=== PATIENT | male | born 1960 | race Caucasian/White ===

== ENCOUNTER 2023-03-11 13:48 | Emergency (ER) | payer MEDICARE, MEDICAID, SELFPAY ==
[2023-03-11] VITALS (12 sets, daily range): BP systolic 129–164; BP diastolic 84–97; PULSE 67–104; RESP 12–22; TEMP 36.8; O2SAT 94–98; BMI 25.7
--- NOTE | 2023-03-11 14:00 | ECG_ITS ---
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
--- NOTE | 2023-03-11 14:02 | ED_ITS ---
HPI - General Adult General Chief complaint: Shortness of Breath/Dyspnea Stated complaint: SHORTNESS OF BREATH, CHEST PAIN, SPITTING UP PHLEM Time Seen by Provider: 03/11/23 13:51 History of Present Illness HPI narrative: patient is a 63-year-old male with a history of chronic obstructive pulmonary disease who presents to the emergency department for a one-week history of cough, shortness of breath and chest pain. He states the chest pain became more significant today prompting him to come to the Emergency Room. He states he has been short of breath and coughing with some sputum. He denies fevers, vomiting. No peripheral edema. He is a regular smoker, he does not currently have a physician. He has not been on any recent antibiotics or steroids. He states he had an Advair inhaler which he ran out of. No sick contacts in the home. He has had decreased oral intake as he lives alone and has not been feeling well. Related Data Previous Rx's Medication Instructions Recorded albuterol sulfate 90 mcg/actuation 2 inh inhalation Q6H PRN shortness 03/11/23 breath activated powder inhaler of breath or wheezing #1 ea azithromycin 250 mg tablet See Rx Instructions PO .COMPLEX #6 03/11/23 tabs prednisone 20 mg tablet 40 mg PO DAILY #10 tabs 03/11/23 Allergies Allergy/AdvReac Type Severity Reaction Status Date / Time No Known Drug Allergies Allergy Verified 03/11/23 13:58 Exam Constitutional Vital Signs, click to edit/add: Last Vital Signs Temp 98.3 F 03/11/23 14:00 Pulse 104 H 03/11/23 15:20 Resp 17 03/11/23 15:20 BP 162/91 H 03/11/23 15:00 Pulse Ox 95 03/11/23 15:20 O2 Del Method Room Air 03/11/23 14:37 Course Vital Signs Vital signs: Vital Signs Pulse Oximetry 97 03/11/23 13:54 Temperature 98.3 F 03/11/23 14:00 Pulse Rate 104 H 03/11/23 15:20 Respiratory Rate 17 03/11/23 15:20 Blood Pressure 162/91 H 03/11/23 15:00 Pulse Oximetry 95 03/11/23 15:20 Oxygen Delivery Method Room Air 03/11/23 14:37 Medical Decision Making MDM Narrative Medical decision making narrative: lab studies including d-dimer, troponin and BNP are within normal limits. Patient was treated with breathing treatment, Solu-Medrol and aspirin given as a precaution. EKG is unremarkable, chest x-ray shows no evidence of acute cardiopulmonary changes. patient is reevaluated by attending physician, patient's chest pain is worse with deep breathing and movement, it has been present for over a week with normal labs and no EKG changes. Patient will be treated with antibiotics, steroids, albuterol inhaler. Follow-up with PCP and return to the Emergency Room if symptoms change or worsen. Medical Records Medical records reviewed: Yes I reviewed the patient's medical records Lab Data Lab results reviewed: Yes I reviewed the patient's lab results Labs: Lab Results 03/11/23 Range/Units 14:09 WBC 9.0 (4.0-11.0) 10^3/uL RBC 4.67 L (4.70-6.10) 10^6/uL Hgb 13.8 L (14.0-18.0) g/dL Hct 43.3 (42.0-54.0) % MCV 92.7 (80.0-94.0) fL MCH 29.6 (25.9-34.0) pg MCHC 31.9 (29.9-35.2) g/dL RDW 13.3 (11.0-15.0) % Plt Count 248 (150-450) 10^3/uL MPV 9.8 (9.5-13.5) fL Neut % (Auto) 65.7 (43.0-75.0) % Lymph % (Auto) 20.9 (20.5-60.0) % [place] % (Auto) 9.9 (1.7-12.0) % Eos % (Auto) 1.6 (0.9-7.0) % Baso % (Auto) 0.8 (0.2-2.0) % Neut # (Auto) 5.9 (1.4-6.5) 10^3/uL Lymph # (Auto) 1.9 (1.2-3.8) 10^3/uL [place] # (Auto) 0.9 H (0.3-0.8) 10^3/uL Eos # (Auto) 0.1 (0.0-0.7) 10^3/uL Baso # (Auto) 0.1 (0.0-0.1) 10^3/uL Abs Immat Gran (auto) 0.10 H (0.00-0.03) 10^3/uL Imm/Tot Granulo (auto) 1.1 H (0.0-0.5) % PT 9.7 (9.0-11.6) sec INR <0.93 APTT 23.9 (22.3-36.2) sec D-Dimer 0.32 (<=0.59) mg/L FEU VBG pH 7.426 (7.330-7.430) VBG pCO2 47.1 (40.0-52.0) mmHg Sodium 140 (136-145) mmol/L Potassium 4.2 (3.5-5.1) mmol/L Chloride 104 (98-107) mmol/L Carbon Dioxide 31.5 (21.0-32.0) mmol/L Anion Gap 8.7 BUN 16.0 (7.0-18.0) mg/dL Creatinine 0.94 (0.70-1.30) mg/dL Est GFR ( Amer) >60 (>=60) Est GFR (Non-Af Amer) >60 (>=60) BUN/Creatinine Ratio 17.0 Glucose 92 (74-106) mg/dL Calcium 9.2 (8.5-10.1) mg/dL Total Bilirubin 0.3 (0.2-1.0) mg/dL AST 15 (15-37) U/L ALT 20 (16-63) U/L Alkaline Phosphatase 101 (46-116) U/L Troponin I High Sens 5.2 (4.0-76.1) pg/mL NT-Pro-B Natriuret Pep 40.0 (<=900.0) pg/mL Total Protein 7.1 (6.4-8.2) g/dL Albumin 3.7 (3.4-5.0) g/dL Globulin 3.4 g/dL Albumin/Globulin Ratio 1.1 Imaging Data Chest x-ray: Attestation: I have reviewed the pertinent imaging results. Radiologist's impression: Procedure: XR chest 1V ONE-VIEW CHEST RADIOGRAPH, 03/11/2023 2:40 PM EDT COMPARISON: None CLINICAL HISTORY: Chest pain FINDINGS: Minimal atelectasis in the left lung base. Lungs otherwise clear. No pulmonary edema, pneumothorax, or pleural effusion. Normal heart size. No acute osseous abnormality. IMPRESSION: Minimal atelectasis in the left lung base. Electronically authenticated by: Mariam GIFFORD Date: 03/11/2023 15:11 ECG Data Attestation: I personally reviewed and interpreted this ECG as follows: (normal sinus rhythm at a rate of seventy-four, no acute ST elevation or ectopy. EKG reviewed by attending physician) Discharge Plan Discharge Chief Complaint: Shortness of Breath/Dyspnea Clinical Impression: COPD exacerbation Patient Disposition: Home, Self-Care Time of Disposition Decision: 15:30 Mode of Transportation: Private Vehicle Prescriptions / Home Meds: New albuterol sulfate 90 mcg/actuation aerosol powdr breath activated 2 inh inhalation Q6H PRN (Reason: shortness of breath or wheezing) Qty: 1 0RF prednisone 20 mg tablet 40 mg PO DAILY Qty: 10 0RF azithromycin 250 mg tablet See Rx Instructions .ROUTE .COMPLEX Qty: 6 0RF Rx Instructions: For 250 mg dose pack: take 500 mg today (day 1), then 250 mg for 4 days (days 2-5) Instructions: COPD (Chronic Obstructive Pulmonary Disease) (ED) Stand Alone Forms: Portal Instructions Referrals: REGINALDO AGOSTO [Nurse Practitioner] - 1 week Discharge Date/Time: 03/11/23 15:39
[2023-03-11 14:15] LABS: PCO2 VBG 47.1 mmHg (40.0-52.0); pH VBG 7.426 (7.330-7.430)
[2023-03-11 14:17] LABS: Basophils Absolute Auto 0.1 10^3/uL (0.0-0.1); Basophils Percent Auto 0.8 % (0.2-2.0); Eosinophils Absolute Auto 0.1 10^3/uL (0.0-0.7); Eosinophils Percent Auto 1.6 % (0.9-7.0); Hematocrit 43.3 % (42.0-54.0); Hemoglobin 13.8 g/dL (14.0-18.0); Immature Granulocytes Pct Auto 1.1 % (0.0-0.5); Lymphocytes Absolute Auto 1.9 10^3/uL (1.2-3.8); Lymphocytes Percent Auto 20.9 % (20.5-60.0); Mean Corpuscular HGB Conc 31.9 g/dL (29.9-35.2); Mean Corpuscular Hemoglobin 29.6 pg (25.9-34.0); Mean Corpuscular Volume 92.7 fL (80.0-94.0); Mean Platelet Volume 9.8 fL (9.5-13.5); Monocytes Absolute Auto 0.9 10^3/uL (0.3-0.8); Monocytes Percent Auto 9.9 % (1.7-12.0); Neutrophils Absolute Auto 5.9 10^3/uL (1.4-6.5); Neutrophils Percent Auto 65.7 % (43.0-75.0); Platelet Count 248 10^3/uL (150-450); Red Blood Count 4.67 10^6/uL (4.70-6.10); Red Cell Distribution Width 13.3 % (11.0-15.0)
[2023-03-11] MEDS: ASPIRIN 81 MG TAB.CHEW 162 MG PO (14:18)
[2023-03-11] MEDS: 0.9 % SODIUM CHLORIDE 1,000 ML 1000 ML IV (14:18)
[2023-03-11] MEDS: METHYLPREDNISOLONE SOD SUCC PF 125 MG/2 ML VIAL IVP (14:19)
[2023-03-11] MEDS: ALBUTEROL SULFATE 2.5 MG/3 ML VIAL NEB IH (14:33)
[2023-03-11 14:38] LABS: Alanine Aminotransferase 20 U/L (16-63); Albumin Globulin Ratio 1.1; Albumin Level 3.7 g/dL (3.4-5.0); Alkaline Phosphatase 101 U/L (46-116); Anion Gap 8.7; Aspartate Amino Transferase 15 U/L (15-37); Bilirubin Total 0.3 mg/dL (0.2-1.0); Calcium 9.2 mg/dL (8.5-10.1); Carbon Dioxide 31.5 mmol/L (21.0-32.0); Chloride 104 mmol/L (98-107); Estimated GFR (African America >60 (>=60); Estimated GFR (Non-African Ame >60 (>=60); Globulin 3.4 g/dL; Glucose 92 mg/dL (74-106); Potassium 4.2 mmol/L (3.5-5.1); Sodium 140 mmol/L (136-145); Total Protein 7.1 g/dL (6.4-8.2); Troponin I High Sensitivity 5.2 pg/mL (4.0-76.1)
[2023-03-11 14:40] LABS: D Dimer 0.32 mg/L FEU (<=0.59); Partial Thromboplastin Time 23.9 sec (22.3-36.2); Prothrombin Time 9.7 sec (9.0-11.6)
[2023-03-11 14:42] LABS: INR <0.93
--- NOTE | 2023-03-11 14:43 | XR_ITS ---
The [address] [address] Patient Name: KRISH MCDONOUGH MRN: [id number] date: 1960 Sex: M Assigned Patient Location: ER Current Patient Location: ER Accession/Order Number: [id number] Exam Date: 03/11/2023 14:40 Report Date: 03/11/2023 15:11 At the request of: ERICA HINDS Procedure: XR chest 1V ONE-VIEW CHEST RADIOGRAPH, 03/11/2023 2:40 PM EDT COMPARISON: None CLINICAL HISTORY: Chest pain FINDINGS: Minimal atelectasis in the left lung base. Lungs otherwise clear. No pulmonary edema, pneumothorax, or pleural effusion. Normal heart size. No acute osseous abnormality. XR/XR chest 1V IMPRESSION: Minimal atelectasis in the left lung base. Electronically authenticated by: Mariam GIFFORD Date: 03/11/2023 15:11
== END 2023-03-11 15:39 | disposition home or self-care (01) ==
PROVIDERS: Physician Assistant; Emergency Provider Emergency Medicine
DX: J44.1 Chronic obstructive pulmonary disease with (acute) exacerbation (principal); F17.210 Nicotine dependence, cigarettes, uncomplicated
CPT/HCPCS: 36415; 36592; 71045; 80053; 82800; 83880; 84484; 85025; 85378; 85610; 85730; 93005; 94640; 96374; 99285; 99406; J2930

== ENCOUNTER 2023-08-02 08:19 | Emergency (ER) | payer MEDICARE, SELFPAY ==
[2023-08-02] VITALS (15 sets, daily range): BP systolic 154–174; BP diastolic 90–101; PULSE 57–76; RESP 16–27; TEMP 36.5; O2SAT 89–98; BMI 24.2
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
--- NOTE | 2023-08-02 08:40 | ECG_ITS ---
The [facility] Test Date: 2023-08-02 Pat Name: KRISH CUEVAS Department: Room: - Gender: Male [employer] Clerk: : 1960 Requested By: Order Number: [id number] Reading MD: LILLIAN GARCIA Measurements Intervals [place] Rate: 64 P: 41 [place]: 196 QRS: 52 QRSD: 78 T: 46 QT: 400 QTc: 410 Interpretive Statements 1100 Sinus rhythm 9110 normal ECG Compared to ECG 06/08/2018 12:57:18 ST (T wave) deviation no longer present Electronically Signed On 08-02-2023 22:21:01 EDT by LILLIAN GARCIA
--- NOTE | 2023-08-02 08:40 | XR_ITS ---
The [address] [address] Patient Name: KRISH CUEVAS MRN: [id number] date: 1960 Sex: M Assigned Patient Location: ER Current Patient Location: ER Accession/Order Number: [id number] Exam Date: 08/02/2023 09:23 Report Date: 08/02/2023 09:41 At the request of: NIKOLE WHEATLEY Procedure: XR chest 2V EXAM: XR chest 2V HISTORY: cp COMPARISON: Chest study dated 03/11/2023 TECHNIQUE: PA and lateral views of the chest were obtained. FINDINGS: Heart and mediastinal contours are unremarkable in appearance. Mild COPD. No acute infiltrate or consolidations are seen. No obvious pneumothorax. Slight ill-defined increased density overlying the left upper lung field laterally as well as lower lung castellanos compatible with atelectatic and/or fibrotic changes similar to the prior study. [id number] degenerative changes in the dorsal spine with mild convexity to the right. XR/XR chest 2V IMPRESSION: Mild COPD. Findings compatible with mild atelectatic and/or fibrotic changes as described. No obvious focal infiltrate or consolidation. Electronically authenticated by: OLGA NERI Date: 08/02/2023 09:41
[2023-08-02] MEDS: ASPIRIN 81 MG TAB.CHEW 162 MG PO (09:01)
[2023-08-02 09:06] LABS: Basophils Absolute Auto 0.1 10^3/uL (0.0-0.1); Basophils Percent Auto 0.9 % (0.2-2.0); Eosinophils Absolute Auto 0.2 10^3/uL (0.0-0.7); Hemoglobin 13.6 g/dL (14.0-18.0); Immature Granulocytes Abs Auto 0.12 10^3/uL (0.00-0.03); Immature Granulocytes Pct Auto 1.4 % (0.0-0.5); Lymphocytes Absolute Auto 2.1 10^3/uL (1.2-3.8); Lymphocytes Percent Auto 23.5 % (20.5-60.0); Mean Corpuscular HGB Conc 31.6 g/dL (29.9-35.2); Mean Corpuscular Hemoglobin 29.6 pg (25.9-34.0); Mean Corpuscular Volume 93.5 fL (80.0-94.0); Mean Platelet Volume 9.9 fL (9.5-13.5); Monocytes Absolute Auto 0.9 10^3/uL (0.3-0.8); Monocytes Percent Auto 10.6 % (1.7-12.0); Neutrophils Absolute Auto 5.4 10^3/uL (1.4-6.5); Neutrophils Percent Auto 61.6 % (43.0-75.0); Platelet Count 238 10^3/uL (150-450); Red Cell Distribution Width 13.6 % (11.0-15.0); White Blood Count 8.7 10^3/uL (4.0-11.0)
--- NOTE | 2023-08-02 09:15 | ED.GENADUL1 ---
HPI - General Adult General Chief complaint: Chest Pain Stated complaint: CHEST PAIN Time Seen by Provider: 08/02/23 08:40 Source: patient Mode of arrival: walk-in Limitations: no limitations History of Present Illness HPI narrative: Patient is a 63-year-old female who is presenting to the ER today with chief complaint of 4 days of chest wall pain, chest pressure, also productive yellow/greenish/clear productive sputum for the past 3 to 4 days. Patient is a smoker, patient states he is trying to quit. Patient has a history of emphysema and COPD. Patient states he had a stress test and echocardiogram 10 to 15 years ago. Patient has no recent traveling. Patient was seeing Dr. 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 Patient has no abdominal pain, nausea or vomiting. Patient has no recent heavy lifting, twisting or turning. Patient has sore throat, sinus congestion, sinus headache, no other acute complaints. Patient's headache was not the worse headache of her life, not sudden onset, not thunderclap in nature. All systems are negative except as noted/marked. All systems reviewed and otherwise negative. Nurses note and vital signs reviewed and patient is not hypoxic. General: The patient appears well and in no apparent distress. Patient is resting comfortably on cart. Patient is not toxic, lethargic, or listless Skin: Warm, dry, no pallor noted. There is no rash noted. No petechiae, purpura. Head: Normocephalic, atraumatic, mild reproducible tenderness to palpation to bilateral frontal and maxillary sinuses. Eye: Normal conjunctiva, no drainage, EOMI. PERRL Ears, Nose, Mouth, and Throat: oral mucosa is moist. Patient has clear/yellowish sinus drainage to the posterior pharynx along cobblestoning, no unilateral swelling, no posterior pharyngeal petechiae, exudate, or acute abnormalities. Nares patent. Mouth without vesicles. Cardiovascular: Regular Rate and Rhythm, no murmur, gallop, rub; patient has reproducible tenderness to palpation to the bilateral anterior chest wall, no rash, barrel chest noted. Respiratory: Patient is in no distress, no accessory muscle use, lungs are clear to auscultation, no wheezing, rales or rhonchi Back: non-tender, no CVA tenderness bilaterally to percussion. No CT LS midline pain GI: no tenderness to palpation, no masses appreciated. No rebound, guarding, or rigidity noted. No distention Musculoskeletal: Patient has full range of motion of all of the extremities, no motor, sensory, or focal neurological deficits Neurological: A&O x4, normal speech Psychiatric: Cooperative Related Data Home Medications Medication Instructions Recorded Confirmed albuterol sulfate 90 mcg/actuation 1 puff inhalation Q6H PRN 08/02/23 08/02/23 aerosol inhaler shortness of breath or wheezing budesonide-formoterol HFA 80 1 inh inhalation BID 08/02/23 08/02/23 mcg-4.5 mcg/actuation aerosol inhaler (Symbicort) Previous Rx's Medication Instructions Recorded albuterol sulfate 90 mcg/actuation 2 inh inhalation Q6H PRN shortness 03/11/23 breath activated powder inhaler of breath or wheezing #1 ea prednisone 20 mg tablet 40 mg (2 x 20 mg) PO DAILY #10 tabs 03/11/23 benzonatate 100 mg capsule 200 mg (2 x 100 mg) PO TID PRN 08/02/23 cough #20 caps doxycycline hyclate 100 mg tablet 100 mg PO BID 10 days #20 tabs 08/02/23 ondansetron 4 mg disintegrating 4 mg PO Q4H PRN nausea and 08/02/23 tablet vomiting 3 days #6 tabs prednisone 50 mg tablet 50 mg PO DAILY 5 days #5 tabs 08/02/23 Allergies Allergy/AdvReac Type Severity Reaction Status Date / Time No Known Drug Allergies Allergy Verified 03/11/23 13:58 Exam Constitutional Vital Signs, click to edit/add: Last Vital Signs Temp 97.7 F 08/02/23 08:24 Pulse 76 08/02/23 10:09 Resp 18 08/02/23 09:57 BP 168/90 H 08/02/23 10:09 Pulse Ox 98 08/02/23 10:09 O2 Del Method Room Air 08/02/23 08:24 Course Vital Signs Vital signs: Vital Signs Temperature 97.7 F 08/02/23 08:24 Pulse Rate 65 08/02/23 08:24 Respiratory Rate 18 08/02/23 08:24 Blood Pressure 174/100 H 08/02/23 08:24 Pulse Oximetry 97 08/02/23 08:24 Oxygen Delivery Method Room Air 08/02/23 08:24 Temperature 97.7 F 08/02/23 08:24 Pulse Rate 76 08/02/23 10:09 Respiratory Rate 18 08/02/23 09:57 Blood Pressure 168/90 H 08/02/23 10:09 Pulse Oximetry 98 08/02/23 10:09 Oxygen Delivery Method Room Air 08/02/23 08:24 Medical Decision Making MDM Narrative Medical decision making narrative: Patient EKG, chest x-ray, lab work shows no acute findings. Patient will be sent home with prednisone, doxycycline, Tessalon perles as well. Patient was educated on using [id number]-[id number] medications as well, this was written on his discharge papers. Patient will start taking baby aspirin daily. Patient was given signs and symptoms of water return back to the ER, otherwise patient has been referred to cardiology as well. Patient understands this, no questions at discharge. Lab Data Labs: Lab Results 08/02/23 Range/Units 08:45 WBC 8.7 (4.0-11.0) 10^3/uL RBC 4.60 L (4.70-6.10) 10^6/uL Hgb 13.6 L (14.0-18.0) g/dL Hct 43.0 (42.0-54.0) % MCV 93.5 (80.0-94.0) fL MCH 29.6 (25.9-34.0) pg MCHC 31.6 (29.9-35.2) g/dL RDW 13.6 (11.0-15.0) % Plt Count 238 (150-450) 10^3/uL MPV 9.9 (9.5-13.5) fL Neut % (Auto) 61.6 (43.0-75.0) % Lymph % (Auto) 23.5 (20.5-60.0) % Letcher % (Auto) 10.6 (1.7-12.0) % Eos % (Auto) 2.0 (0.9-7.0) % Baso % (Auto) 0.9 (0.2-2.0) % Neut # (Auto) 5.4 (1.4-6.5) 10^3/uL Lymph # (Auto) 2.1 (1.2-3.8) 10^3/uL Letcher # (Auto) 0.9 H (0.3-0.8) 10^3/uL Eos # (Auto) 0.2 (0.0-0.7) 10^3/uL Baso # (Auto) 0.1 (0.0-0.1) 10^3/uL Abs Immat Gran (auto) 0.12 H (0.00-0.03) 10^3/uL Imm/Tot Granulo (auto) 1.4 H (0.0-0.5) % D-Dimer 0.52 (<=0.59) mg/L FEU Sodium 141 (136-145) mmol/L Potassium 4.1 (3.5-5.1) mmol/L Chloride 105 (98-107) mmol/L Carbon Dioxide 27.6 (21.0-32.0) mmol/L Anion Gap 12.5 BUN 13.0 (7.0-18.0) mg/dL Creatinine 0.87 (0.70-1.30) mg/dL Est GFR ( Amer) >60 (>=60) Est GFR (Non-Af Amer) >60 (>=60) BUN/Creatinine Ratio 14.9 Glucose 88 (74-106) mg/dL Calcium 8.7 (8.5-10.1) mg/dL Total Bilirubin 0.3 (0.2-1.0) mg/dL AST 24 (15-37) U/L ALT 31 (16-63) U/L Alkaline Phosphatase 99 (46-116) U/L Troponin I High Sens <4.0 L (4.0-76.1) pg/mL NT-Pro-B Natriuret Pep 80.0 (<=900.0) pg/mL Total Protein 7.5 (6.4-8.2) g/dL Albumin 3.8 (3.4-5.0) g/dL Globulin 3.7 g/dL Albumin/Globulin Ratio 1.0 Lipase 34.0 (16.0-77.0) U/L ECG Data Attestation: I personally reviewed and interpreted this ECG as follows: (EKG interpretation. Normal sinus rhythm at 64 beats a minute. Normal axis deviation. No acute ST elevation, no acute ectopy. QTc of 410) Discharge Plan Discharge Stand Alone Forms: Portal Instructions Chief Complaint: Chest Pain Clinical Impression: Chest wall pain, Atypical chest pain, Sinusitis, Tobacco abuse, COPD exacerbation Patient Disposition: Home, Self-Care Time of Disposition Decision: 10:43 Condition: Fair Prescriptions / Home Meds: New benzonatate 100 mg capsule 200 mg PO TID PRN (Reason: cough) Qty: 20 0RF prednisone 50 mg tablet 50 mg PO DAILY 5 Days Qty: 5 0RF ondansetron 4 mg tablet,disintegrating 4 mg PO Q4H PRN (Reason: nausea and vomiting) 3 Days Qty: 6 0RF doxycycline hyclate 100 mg tablet 100 mg PO BID 10 Days Qty: 20 0RF No Action albuterol sulfate 90 mcg/actuation aerosol powdr breath activated 2 inh inhalation Q6H PRN (Reason: shortness of breath or wheezing) Qty: 1 0RF prednisone 20 mg tablet 40 mg PO DAILY Qty: 10 0RF budesonide-formoterol [Symbicort] 80-4.5 mcg/actuation HFA aerosol inhaler 1 inh inhalation BID albuterol sulfate 90 mcg/actuation HFA aerosol inhaler 1 puff INHALATION Q6H PRN (Reason: shortness of breath or wheezing) Instructions: Chest Pain (ED), How to Stop Smoking (ED), Sinusitis (ED), COPD (Chronic Obstructive Pulmonary Disease) (ED), Chest Wall Pain (ED) Additional Instructions: Increase fluids at home, Gatorade, Powerade, or water. Alternate using DayQuil, NyQuil, and Flonase. Add Mucinex as well as needed. Alternate Tylenol and Motrin every 4 hours to help with fever control, body aches or joint pain. Use [id number] vitamin C, vitamin D3, and zinc to help fight infection and help with her immune system. I have referred you to cardiology as well, if you continue to have chest pain, he will need to follow-up with them with outpatient stress test and echocardiogram. As discussed at bedside, if you are having heavy, heavy chest pressure, significant shortness of breath, or any other acute concerns, return back to the ER for further evaluation. Start taking a baby aspirin daily until evaluation from Cardiology:. Referrals: Sabino Sam MD [Physician] - 1 week PhysicianLashon-MD Kaley [Primary Care Provider] - 1 week Discharge Date/Time: 08/02/23 11:04
[2023-08-02 09:19] LABS: D Dimer 0.52 mg/L FEU (<=0.59)
[2023-08-02 09:21] LABS: Alanine Aminotransferase 31 U/L (16-63); Albumin Level 3.8 g/dL (3.4-5.0); Alkaline Phosphatase 99 U/L (46-116); Anion Gap 12.5; Aspartate Amino Transferase 24 U/L (15-37); BUN Creatinine Ratio 14.9; Bilirubin Total 0.3 mg/dL (0.2-1.0); Calcium 8.7 mg/dL (8.5-10.1); Carbon Dioxide 27.6 mmol/L (21.0-32.0); Chloride 105 mmol/L (98-107); Estimated GFR (African America >60 (>=60); Estimated GFR (Non-African Ame >60 (>=60); Globulin 3.7 g/dL; Glucose 88 mg/dL (74-106); Potassium 4.1 mmol/L (3.5-5.1); Sodium 141 mmol/L (136-145); Total Protein 7.5 g/dL (6.4-8.2)
[2023-08-02 09:29] LABS: Troponin I High Sensitivity <4.0 pg/mL (4.0-76.1)
== END 2023-08-02 11:04 | disposition home or self-care (01) ==
PROVIDERS: Emergency Provider Emergency Medicine
DX: R07.89 Other chest pain (principal); J32.9 Chronic sinusitis, unspecified; J43.9 Emphysema, unspecified; F17.210 Nicotine dependence, cigarettes, uncomplicated; Z79.899 Other long term (current) drug therapy
CPT/HCPCS: 36415; 71046; 80053; 83690; 83880; 84484; 85025; 85378; 93005; 99285

== ENCOUNTER 2024-01-25 16:42 | Emergency (ER) | payer MEDICARE, MEDICAID, SELFPAY ==
--- OUTSIDE RECORDS SUMMARY | 2024-01-25 16:54 | XMS_ITS | CCD ---
Author Organization [facility] Care Team Providers Care Ironer Name Role Phone PHYSICIAN, DEFAULT Unavailable Unavailable PHYSICIAN, DEFAULT Unavailable Unavailable CRISTY PLEITEZ Unavailable Unavailable REMI GARJEDA Consulting Unavailable KITA MARTI Admitting Unavail able CONCHITA TAVARES Attending Unavailable Unavailable Primary Care Provider UnavailREGINALDO Lyons Referring Unavailable VERONICA FREIRE Admitting Unavailable VERONICA FREIRE Consulting Unavailable VERONICA FREIRE Attending Unavailable [facility] LARA Primary Care Unavailable DELFINO CLAROS Consulting Unavailable [facility] Primary Care Unavailable RGEINALDO AGOSTO Admitting Unavailable REGINALDO AGOSTO Attending Unavailable [...] Start: 02-20-2019 End: 02-20-2019 lidocaine-EPINEPHr ine 1 percent-[id number] injection 20 mL Problems Active Problems Problem [...] 09-13-2022 Episodic Other aftercare (2 sources) Other watcher automat long goods (current) drug therapy; Translations: [Other watcher automat long goods (current) drug therapy] Onset: 06-16-2022 Episodic Other [...] 09-13-2022 BASO # 0.1 103/ul Normal 0.0-0.1 [facility] Comment on above: Performed By: #### C BC #### [facility] [address] [address] [address] Rachel Pulido Basophils/100 WBC (Bld) 0.9 % Normal 0.2-2.0 [facility] Comment on above: Performed By: #### C BC #### [facility] [address] [address] [address] Rachel Pulido EO # 0.2 103/ul Normal 0.0-0.7 [facility] Comment on above: Performed By: #### C BC #### [facility] [address] [place] [address] Dr. Rachel Pulido Eosinophils/100 WBC (Bld) 1.5 % Normal 0.9-7.0 [facility] Comment on above: Performed By: #### C BC #### [facility] [address] [place] [address] Dr. Racehl Pulido Erythrocyte distribution width (RBC) [Ratio] 13.4 % Normal 11.0-15.0 [facility] Comment on above: Performed By: #### C BC #### [facility] [address] [place] [address] Dr. Rachel Pulido Hematocrit (Bld) [Volume fraction] 45.4 % Normal 42.0-54.0 [facility] Comment on above: Performed By: #### C BC #### [facility] [address] [place] [address] Dr. Rachel Pulido Hemoglobin (Bld) [Mass/Vol] 14.8 g/dL Normal 14.0-18.0 [facility] Comment on above: Performed By: #### C BC #### [facility] [address] [place] [address] Dr. Rachel Pulido IG # 0.07 10e3/ul Critically high 0.00-0.03 [facility] Comment on above: Performed By: #### C BC #### [facility] [address] [place] [address] Dr. Rachel Pulido IG % 0.7 % Critically high 0.0-0.5 [facility] Comment on above: Performed By: #### C BC #### [facility] [address] [place] [address] Dr. Rachel Pulido LYMPH # 1.9 103/ul Normal 1.2-3.8 [facility] Comment on above: Performed By: #### C BC #### [facility] [address] [place] [address] Dr. Rachel Pulido Lymphocytes/100 WBC (Bld) 18.7 % Critically low 20.5-60.0 [facility] Comment on above: Performed By: #### C BC #### [facility] [address] [place] [address] Dr. Rachel Pulido MANUAL DIFF REQ NO Normal [facility] Comment on above: Performed By: #### C BC #### [facility] [address] [place] [address] Dr. Rachel Pulido MCH (RBC) [Entitic mass] 30.2 pg Normal 25.9-34.0 [facility] Comment on above: Performed By: #### C BC #### [facility] [address] [place] [address] Dr. Rachel Pulido MCHC (RBC) [Mass/Vol] 32.6 g/dL Normal 29.9-35.2 [facility] Comment on above: Performed By: #### C BC #### [facility] [address] [place] [address] Dr. Rachel Pulido MCV (RBC) [Entitic vol] 92.7 fL Normal 80.0-94.0 [facility] Comment on above: Performed By: #### C BC #### [facility] [address] [place] [address] Dr. Rachel Pulido MONO # 1.0 103/ul Critically high 0.3-0.8 [facility] Comment on above: Performed By: #### C BC #### [facility] [address] [place] [address] Dr. Rachel Pulido Monocytes/100 WBC (Bld) 9.6 % Normal 1.7-12.0 [facility] Comment on above: Performed By: #### C BC #### [facility] [address] [place] [address] Dr. Rachel Pulido NEUT # 7.1 103/ul Critically high 1.4-6.5 [facility] Comment on above: Performed By: #### C BC #### [facility] [address] [place] [address] Dr. Rachel Pulido Neutrophils/100 WBC (Bld) 68.6 % Normal 43.0-75.0 [facility] Comment on above: Performed By: #### C BC #### [facility] [address] [address] [address] Rachel Pulido Platelet mean volume (Bld) [Entitic vol] 9.8 fL Normal 9.5-13.5 [facility] Comment on above: Performed By: #### C BC #### [facility] [address] [address] [address] Rachel Pulido PLT 263 103/ul Normal 150-450 [facility] Comment on above: Performed By: #### C BC #### [facility] [address] [address] [address] Rachel Pulido RBC 4.90 106/ul Normal 4.70-6.10 [facility] Comment on above: Performed By: #### C BC #### [facility] [address] [place] [address] Dr. Rachel Pulido WBC 10.4 103/ul Normal 4.0-11.0 [facility] Comment on above: Performed By: #### C BC #### [facility] [address] [place] [address] ABD/PELVIS WO CONon [...] ninth lateral rib. Electronically authenticated by: DELFINO CAMULISES Date: 2022-09-13 11:34 Normal [facility] ER URINE PROFILEon 3 Bilirubin Ql (U) Negative Normal NEGATIVE [facility] Comment on above: Performed By: #### E RUR #### [facility] [address] [place] [address] Dr. Rachel Pulido Clarity (U) CLEAR Normal CLEAR [facility] Comment on above: Performed By: #### E RUR #### [facility] [address] [place] [address] Dr. Rachel Pulido Color (U) LT. YELLOW Normal YELLOW [facility] Comment on above: Performed By: #### E RUR #### [facility] [address] [place] [address] Dr. Rachel PICKARD A micrscopic examination will be performed if indicated. Normal [facility] Comment on above: Performed By: #### E RUR #### [facility] [address] [place] [address] Dr. Rachel Pulido Glucose Ql (U) Negative Normal NEGATIVE [facility] Comment on above: Performed By: #### E RUR #### [facility] [address] [address] [address] Rachel Pulido Hemoglobin Ql (U) Negative Normal NEGATIVE [facility] Comment on above: Performed By: #### E RUR #### [facility] [address] [address] [address] Rachel Pulido Ketones Ql (U) Negative Normal NEGATIVE [facility] Comment on above: Performed By: #### E RUR #### [facility] [address] [place] [address] Dr. Rachel Pulido LEUKOCYTES Negative Normal NEGATIVE [facility] Comment on above: Performed By: #### E RUR #### [facility] [address] [place] [address] Dr. Rachel Pulido Nitrite Ql (U) Negative Normal NEGATIVE [facility] Comment on above: Performed By: #### E RUR #### [facility] [address] [place] [address] Dr. Rachel Pulido pH (U) 5.5 [pH] Normal 5-9 [facility] Comment on above: Performed By: #### E RUR #### [facility] [address] [place] [address] Dr. Rachel Pulido SPEC GRAVITY >=1.030 Abnormal 1.005-<=1.025 [facility] Comment on above: Performed By: #### E RUR #### [facility] [address] [place] [address] Dr. Rachel Pulido UA PROTEIN Negative Normal NEGATIVE/ TRACE [facility] Comment on above: Performed By: #### E RUR #### [facility] [address] [place] [address] Dr. Rachel Pulido UR MICRO IND NOT INDICATED Normal [facility] Comment on above: Performed By: #### E RUR #### [facility] [address] [place] [address] Dr. Rachel Pulido Urobilinogen Qn (U) 0.2 {Angella'U}/dL Normal 0.2 - 1. 0 [facility] Comment on above: Performed By: #### E RUR #### [facility] [address] [place] [address] Dr. Rachel Pulido PROF 14(COMP METB)on 09-13- 023 Albumin [Mass/Vol] 3.9 g/dL Normal 3.4-5.0 [facility] Comment on above: Performed By: #### C MP #### [facility] [address] [place] [address] Dr. Rachel Pulido Albumin/Globulin [Mass ratio] 1.1 {ratio} Normal [facility] Comment on above: Performed By: #### C MP #### [facility] [address] [place] [address] Dr. Rachel Pulido ALP [Catalytic activity/Vol] 110 U/L Normal 46-116 [facility] Comment on above: Performed By: #### C MP #### [facility] [address] [place] [address] Dr. Rachel Pulido ALT [Catalytic activity/Vol] 20 U/L Normal 16-63 [facility] Comment on above: Performed By: #### C MP #### [facility] [address] [place] [address] Dr. Rachel Pulido Anion gap [Moles/Vol] 8.9 mmol/L Normal [facility] Comment on above: Performed By: #### C MP #### [facility] [address] [place] [address] Dr. Rachel Pulido AST [Catalytic activity/Vol] 16 U/L Normal 15-37 [facility] Comment on above: Performed By: #### C MP #### [facility] [address] [place] [address] Dr. Rachel Pulido Bilirubin [Mass/Vol] 0.2 mg/dL Normal 0.2-1.0 [facility] Comment on above: Performed By: #### C MP #### [facility] [address] [place] [address] Dr. Rachel Pulido Calcium [Mass/Vol] 9.3 mg/dL Normal 8.5-10.1 [facility] Comment on above: Performed By: #### C MP #### [facility] [address] [place] [address] Dr. Rachel Pulido Chloride [Moles/Vol] 106 mmol/L Normal 98-107 [facility] Comment on above: Performed By: #### C MP #### [facility] [address] [place] [address] Dr. Rachel Pulido CO2 [Moles/Vol] 32.0 mmol/L Normal 21.0-32.0 [facility] Comment on above: Performed By: #### C MP #### [facility] [address] [place] [address] Dr. Rachel Pulido Creatinine [Mass/Vol] 0.80 mg/dL Normal 0.70-1.30 [facility] Comment on above: Performed By: #### C MP #### [facility] [address] [address] [address] Rachel Pulido EGFR-AF CHILEAN >60 Normal >=60 [facility] Comment on above: Performed By: #### C MP #### [facility] [address] [address] [address] Rachel Pulido EGFR-NON AF CHILEAN >60 Normal >=60 [facility] Comment on above: Performed By: #### C MP #### [facility] [address] [address] [address] Rachel Pulido Globulin (S) [Mass/Vol] 3.7 g/dL Normal [facility] Comment on above: Performed By: #### C MP #### [facility] [address] [place] [address] Dr. Rachel Pulido Glucose [Mass/Vol] 92 mg/dL Normal 74-106 [facility] Comment on above: Performed By: #### C MP #### [facility] [address] [address] [address] Rachel Pulido Potassium [Moles/Vol] 4.9 mmol/L Normal 3.5-5.1 [facility] Comment on above: Performed By: #### C MP #### [facility] [address] [place] [address] Dr. Rachel Pulido Protein [Mass/Vol] 7.6 g/dL Normal 6.4-8.2 [facility] Comment on above: Performed By: #### C MP #### [facility] [address] [address] [address] Rachel Pulido Sodium [Moles/Vol] 142 mmol/L Normal 136-145 [facility] Comment on above: Performed By: #### C MP #### [facility] [address] [address] [address] Rachel Pulido Urea nitrogen [Mass/Vol] 15.0 mg/dL Normal 7.0-18.0 [facility] Comment on above: Performed By: #### C MP #### [facility] [address] [place], [place] [address] Dr. Rachel Pulido Urea nitrogen/Creatinine [Mass ratio] 18.8 mg/mg Normal [facility] Comment on above: Performed By: #### C MP #### [facility] [address] [place], [place] [address] Dr. Rachel Pulido THC, Ur Confirmationon 06-19 THC Confirm 34 ng/mL Normal [facility] Comment on above: Result Comment: (NOT E) INTERPRETIVE INFORMATION: THC Metabolite, Urine, Quantitative Methodology: Quantitative Liquid Chromatography-Tandem Mass Spectrometry Positive cutoff: 15 ng/mL For medical purposes only; not valid for forensic use. The drug analyte detected in this assay, 9-carboxy THC, is a metabolite of ogvhg-5-cnrxyyktfdwndjlcwnss (THC). Detection of 9-carboxy THC suggests use [...] developed and its performance characteristics determined by [facility]. It has not been cleared or approved by the [place] Food and Drug Administration. This test was performed in a CLIA certified laboratory and is intended for clinical purposes. Performed By: [facility] [address] [place] [address] District Adviser: Dhruv Hu MD, PhD Performed By: #### A THCCO, ADAU9U #### [facility] [address] [place] [address] Slot Floorperson: Wali Beaulieu MD #### ABRAHAM #### [facility] [address] [place] [address] Slot Floorperson: Michael Deng MD #### SHRUTHI LONGORIA #### [facility] [address] [place] [address] Slot Floorperson: Deangelo Neal MD #### COVID #### [address] [address] Slot Floorperson: Michael Deng MD [facility] [address] [place] [address] [place] [address] Slot Floorperson: Deangelo Neal MD Drugs of Abuse,Urineon 06-18 Alcohol, Ur Negative Normal Cutoff 40 [facility] Comment on above: Performed By: #### A THCCO, ADAU9U #### [facility] [address] [place] [address] Slot Floorperson: Wali Beaulieu MD #### URURI #### [address] [address] Slot Floorperson: Michael Degn MD #### FLUABA, SHRUTHI #### [address] [place], [place] [phone] Slot Floorperson: Deangelo Neal MD #### COVID #### [address] [address] Slot Floorperson: Michael Deng MD [facility] [address] [place] [address] [place] [address] Slot Floorperson: Deangelo Neal MD Amphetamine, Ur Negative Normal Cutoff 300 [facility] Comment on above: Performed By: #### A THCCO, ADAU9U #### [facility] [address] [place] [address] Slot Floorperson: Wali Beaulieu MD #### URURI #### [address] [address] Slot Floorperson: Michael Deng MD #### FLUABA, SHRUTHI #### [facility] [address] [place], [place] [id number] Slot Floorperson: Deangelo Neal MD #### COVID #### [address] [address] Slot Floorperson: Michael Deng MD [facility] [address] [place] [address] Dr. [place], [place] [phone] Slot Floorperson: Deangelo Neal MD Barbiturates, Ur Negative Normal Cutoff 200 [facility] Comment on above: Performed By: #### A THCCO, ADAU9U #### [facility] [address] [place] [address] Slot Floorperson: Wali Beaulieu MD #### URURI #### [address] [address] Slot Floorperson: Michael Deng MD #### FLUABA, SHRUTHI #### [address] [place] [address] Slot Floorperson: Deangelo Neal MD #### COVID #### [address] [address] Slot Floorperson: Michael Deng MD [address] [place], [place] [address] Slot Floorperson: Deangelo Neal MD Benzodiazepines, Ur Negative Normal Cutoff 200 [facility] Comment on above: Performed By: #### A THCCO, ADAU9U #### [facility] [address] [place] [address] Slot Floorperson: Wali Beaulieu MD #### URURI #### [address] [address] Slot Floorperson: Michael Deng MD #### FLUABA, SRHUTHI #### [address] [place], [place] [phone] Slot Floorperson: Deangelo Neal MD #### COVID #### [address] [address] Slot Floorperson: Michael Deng MD [address] [place] [address] Slot Floorperson: Deangelo Neal MD Cocaine, Ur Negative Normal Cutoff 150 [facility] Comment on above: Performed By: #### A THCCO, ADAU9U #### [facility] [address] [place] [address] Slot Floorperson: Wali Beaulieu MD #### URURI #### [facility] [address] [place], [place] [phone] Slot Floorperson: Michael Deng MD #### FLUABA, SHRUTHI #### [facility] [address] [place] [address] Slot Floorperson: Deangelo Neal MD #### COVID #### [facility] [address] [place] [address] Slot Floorperson: Michael Deng MD [facility] [address] [place] [address] [place] [address] Slot Floorperson: Deangelo Neal MD Comments See Note Normal [facility] Comment on above: Result Comment: (NOT E) [...] opioid testing can be ordered. Refer to [facility] for test information. Performed by [facility], [address] [place] [id number] [email or web address], Dhruv Hu MD, PHD, Lab. Director Performed By: #### A THCCO, ADAU9U #### [facility] [address] [place] [id number] Slot Floorperson: Wali Beaulieu MD #### URURI #### [address] [address] Slot Floorperson: Michael Deng MD #### FLUABA, SHRUTHI #### [address] [place] [address] Slot Floorperson: Deangelo Neal MD #### COVID #### [address] [address] Slot Floorperson: Michael Deng MD [address] [place] [address] Slot Floorperson: Deangelo Neal MD Creatinine, Ur <20.0 Low 20.0-400.0 [facility] Comment on above: Result Comment: (NOT E) Creatinine <20 mg/dL is consistent with a dilute urine specimen. Recollection to obtain a more concentrated specimen, such as a first morning void, may be considered if unexpected negative urine drug screening results were obtained. Performed By: #### A THCCO, ADAU9U #### [facility] [address] [place] [address] Slot Floorperson: Wali Beaulieu MD #### URURI #### [address] [address] Slot Floorperson: Michael Deng MD #### FLUABA, SHRUTHI #### [address] [place], [place] [phone] Slot Floorperson: Deangelo Neal MD #### COVID #### [address] [address] Slot Floorperson: Michael Deng MD [address] [place], [place] [phone] Slot Floorperson: Deangelo Neal MD Marijuana, Ur Positive Normal Cutoff 20 [place] Comment on above: Result Comment: (NOT E) If the screen is positive, then confirmation testing by mass spectrometry will be added. Additional charges will apply. Performed By: #### A THCCO, ADAU9U #### [facility] [address] [place] [address] Slot Floorperson: Wali Beaulieu MD #### URURI #### [address] [address] Slot Floorperson: Michael Deng MD #### FLUKUSUM, SHRUTHI #### [address] [place], [place] [phone] Slot Floorperson: Deangelo Neal MD #### COVID #### [address] [address] Slot Floorperson: Michael Deng MD [address] [place], [place] [phone] Slot Floorperson: Deangelo Neal MD Methadone, Ur Negative Normal Cutoff 150 [place] Comment on above: Performed By: #### A THCCO, ADAU9U #### [facility] [address] [place] [address] Slot Floorperson: Wali Beaulieu MD #### URURI #### [address] [address] Slot Floorperson: Michael Deng MD #### FLUABA, SHRUTHI #### [address] [place], [place] [phone] Slot Floorperson: Deangelo Neal MD #### COVID #### [address] [address] Slot Floorperson: Michael Deng MD [facility] [address] [place] [address] Dr. [place], [place] [phone] Slot Floorperson: Deangelo Neal MD Opiates, Ur Negative Normal Cutoff 300 [facility] Comment on above: Performed By: #### A THCCO, ADAU9U #### [facility] [address] [place] [address] Slot Floorperson: Wali Beaulieu MD #### URURI #### [address] [address] Slot Floorperson: Michael Deng MD #### FLUABA, SHRUTHI #### [facility] [address] [place] [address] Dr. [place], [place] [phone] Slot Floorperson: Deangelo Neal MD #### COVID #### [address] [address] Slot Floorperson: Michael Deng MD [facility] [address] [place] [address] Dr. [place], [place] [phone] Slot Floorperson: Deangelo Neal MD Phencyclidine, Ur Negative Normal Cutoff 25 [facility] Comment on above: Performed By: #### A THCCO, ADAU9U #### [facility] [address] [place] [address] Slot Floorperson: Wali Beaulieu MD #### URURI #### [address] [address] Slot Floorperson: Michael Deng MD #### FLUABA, SHRUTHI #### [facility] [address] [place] [address] Dr[address] [place], [place] [phone] Slot Floorperson: Deangelo Neal MD #### COVID #### [address] [address] Slot Floorperson: Michael Deng MD [facility] [address] [place], [place] [phone] Slot Floorperson: Deangelo Neal MD Propoxyphene, Ur Negative Normal Cutoff 300 [facility] Comment on above: Performed By: #### A THCCO, ADAU9U #### [facility] [address] [place] [address] Slot Floorperson: Wali Beaulieu MD #### URURI #### [facility] [address] [place], [place] [phone] Slot Floorperson: Michael Deng MD #### FLUABA, SHRUTHI #### [facility] [address] [place], [place] [phone] Slot Floorperson: Deangelo Neal MD #### COVID #### [facility] [address] [place] [address] Slot Floorperson: Michael Deng MD [facility] [address] [place], [place] [phone] Slot Floorperson: Deangelo Neal MD [id number] 06-17-2022 SARS-CoV-2 (COVID-19) RNA HENOK+probe Ql (Unsp spec) Not detected Normal [facility] Comment on above: Result Comment: The specimen is NEGATIVE for SARS-CoV-2, the novel coronavirus associated with COVID-19. A negative result does not rule out COVID-19. This test has been authorized by the FDA under an Emergency Use Authorization (EUA) for use by authorized laboratories. BD SARS-CoV-2 Reagents for BD [employer] 2000 System are designed to detect the virus that causes COVID-19 in patients with signs and symptoms of infection who are suspected of COVID-19. Fact sheet for Healthcare Providers: https://www.fda.gov/media/019527/download Fact sheet for Patients: https://www.fda.gov/media/798534/download METHODOLOGY: RT-PCR Performed By: #### A TIFFANY, ADAU9U #### [facility] [address] [place] [address] Slot Floorperson: Wali Beaulieu MD #### URURI #### [address] [address] Slot Floorperson: Michael Deng MD #### FLUKUSUM, SHRUTHI #### [address] [place] [phone] Slot Floorperson: Deangelo Neal MD #### COVID #### [address] [address] Slot Floorperson: Michael Deng MD [address] [place] [phone] Slot Floorperson: Deangelo Neal MD SARS-CoV-2 (COVID-19) RNA HENOK+probe Ql (Unsp spec) [facility] Comment on above: Performed By: #### A THCCO, ADAU9U #### [facility] [address] [place] [address] Slot Floorperson: Wali Beaulieu MD #### URURI #### [address] [address] Slot Floorperson: Michael Deng MD #### VON SHRUTHI #### [address] [place] [phone] Slot Floorperson: Deangelo Neal MD #### COVID #### [address] [address] Slot Floorperson: Michael Deng MD [address] [place] [address] Slot Floorperson: Deangelo Neal MD Uric Acid, Random Uron 06-17 Uric Acid conc. <4.0 [facility] Comment on above: Result Comment: No n ormal range established. Performed By: #### A THCCO, ADAU9U #### [facility] [address] [place] [address] Slot Floorperson: Wali Beaulieu MD #### URURI #### [address] [address] Slot Floorperson: Michael Deng MD #### FLUABA, SHRUTHI #### [address] [place], [place] [address] Slot Floorperson: Deangelo Neal MD #### COVID #### [address] [address] Slot Floorperson: Michael Deng MD [address] [place] [id number] Slot Floorperson: Deangelo Neal MD Drug Scr, Abuse, Uron 2022 Amphetamine(s),Ur Negative Normal NEG [facility] Comment on above: Result Comment: (Positive cutoff 1000 ng/mL) Performed By: #### A THCCO, ADAU9U #### [facility] [address] [place] [address] Slot Floorperson: Wali Beaulieu MD #### URURI #### [address] [address] Slot Floorperson: Michael Deng MD #### FLUABA, SHRUTHI #### [address] [place] [address] Slot Floorperson: Deangelo Neal MD #### COVID #### [address] [address] Slot Floorperson: Michael Deng MD [address] [place] [address] Slot Floorperson: Deangelo Neal MD Barbiturate(s),Ur Negative Normal NEG [facility] Comment on above: Result Comment: (Positive cutoff 200 ng/mL) Performed By: #### A THCCO, ADAU9U #### [facility] [address] [place] [address] Slot Floorperson: Wali Beaulieu MD #### URURI #### [address] [address] Slot Floorperson: Michael Deng MD #### FLUABA, SHRUTHI #### [address] [place] [address] Slot Floorperson: Deangelo Neal MD #### COVID #### [address] [address] Slot Floorperson: Michael Deng MD [address] [place] [address] Slot Floorperson: Deangelo Neal MD Benzodiazepine(s) Negative Normal NEG [facility] Comment on above: Result Comment: (Positive cutoff 200 ng/mL) Performed By: #### A THCCO, ADAU9U #### [facility] [address] [place] [address] Slot Floorperson: Wali Beaulieu MD #### URURI #### [address] [address] Slot Floorperson: Michael Deng MD #### FLUKUSUM, SHRUTHI #### [address] [place], [place] 6[address] Slot Floorperson: Deangelo Neal MD #### COVID #### [address] [address] Slot Floorperson: Michael Deng MD [address] [place], [place] 349[address]83 Slot Floorperson: Deangelo Neal MD Buprenorphrine, Ur Negative Normal NEG [facility] Comment on above: Result Comment: (Positive cutoff 5 ng/ml) Performed By: #### A THCCO, ADAU9U #### [facility] [address] [place] [address] Slot Floorperson: Wali Beaulieu MD #### URURI #### [address] [address] Slot Floorperson: Michael Deng MD #### FLUABA, SHRUTHI #### [address] [place], [place] [address] Slot Floorperson: Deangelo Neal MD #### COVID #### [address] [address] Slot Floorperson: Michael Deng MD [address] [place], [place] 37[address]83 Slot Floorperson: Deangelo Neal MD Cannabinoid(s),Ur Positive Abnormal NEG [facility] Comment on above: Result Comment: (Positive cutoff 50 ng/mL) Performed By: #### A THCCO, ADAU9U #### [facility] [address] [place] [address] Slot Floorperson: Wali Beaulieu MD #### URURI #### [address] [address] Slot Floorperson: Michael Deng MD #### FLUKUSUM, SHRUTHI #### [address] [place], [place] 2198283 Slot Floorperson: Deangelo Neal MD #### COVID #### [address] [address] Slot Floorperson: Michael Deng MD [address] [place] [address] Slot Floorperson: Deangelo Neal MD Cocaine Metabolite Negative Normal NEG [facility] Comment on above: Result Comment: (Positive cutoff 300 ng/mL) Performed By: #### A THCCO, ADAU9U #### [facility] [address] [place] [address] Slot Floorperson: Wali Beaulieu MD #### URURI #### [facility] [address] [place] [address] Slot Floorperson: Michael Deng MD #### FLUABA, SHRUTHI #### [facility] [address] [place] [address] [address] [place], [place] 1620483 Slot Floorperson: Deangelo Neal MD #### COVID #### [address] [address] Slot Floorperson: Michael Deng MD [address] [place], [place] 2314083 Slot Floorperson: Deangelo Neal MD Fentanyl, Urine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
[2024-01-25 17:17] VITALS: BP 143/80; PULSE 59; TEMP 36.7; O2SAT 96; BMI 24.9
--- NOTE | 2024-01-25 17:21 | XR_ITS ---
The [address] [address] Patient Name: KRISH CUEVAS MRN: [id number] date: 1960 Sex: M Assigned Patient Location: ER Current Patient Location: ED.MAIN Accession/Order Number: [id number] Exam Date: 01/25/2024 17:38 Report Date: 01/25/2024 18:20 At the request of: ELIZABETH LEWIS Procedure: XR finger RT min 2V IMAGES REVIEWED: XR finger RT min 2V COMPARISON: None available. CLINICAL INDICATION: paronychia FINDINGS/IMPRESSION: 1. Focal dorsal distal third digit soft tissue swelling consistent with provided history of third digit paronchyia. 2. 3 mm linear metallic retained foreign body in the dorsal-radial aspect of the distal third digit soft tissues, projecting near the nailbed on the lateral view. 3. 2 mm linear metallic retained foreign body in the radial/volar aspect of the mid fourth digit soft tissues. 4. No evidence of acute osseous abnormality. Electronically authenticated by: TARUN TODD Date: 01/25/2024 18:20
[2024-01-25] MEDS: ADACEL DIPH,PERTUSS(ACELL),TET VAC/PF 0.5 ML ADULT SYRINGE IM (17:41)
--- NOTE | 2024-01-25 18:11 | ED_ITS ---
HPI HPI - General Adult General Chief complaint: Wound/Laceration Stated complaint: Upper Injury Time Seen by Provider: 01/25/24 17:17 Source: patient Mode of arrival: walk-in Limitations: no limitations History of Present Illness HPI narrative: 63-year-old male presents here with a chief complaint of a paronychia to the right middle finger. Patient states a he was working on a car last week. Denied any injury or trauma. Circumferential paronychia noted to the base of the nail. He is not up-to-date on tetanus. He is otherwise in no acute distress. Related Data Home Medications ?Medication ?Instructions ?Recorded ?Confirmed albuterol sulfate 90 mcg/actuation 1 puff inhalation Q6H PRN 08/02/23 08/02/23 aerosol inhaler shortness of breath or wheezing budesonide-formoterol HFA 80 1 inh inhalation BID 08/02/23 08/02/23 mcg-4.5 mcg/actuation aerosol inhaler (Symbicort) Previous Rx's ?Medication ?Instructions ?Recorded albuterol sulfate 90 mcg/actuation 2 inh inhalation Q6H PRN shortness 03/11/23 breath activated powder inhaler of breath or wheezing #1 ea prednisone 20 mg tablet 40 mg (2 x 20 mg) PO DAILY #10 tabs 03/11/23 benzonatate 100 mg capsule 200 mg (2 x 100 mg) PO TID PRN 08/02/23 cough #20 caps doxycycline hyclate 100 mg tablet 100 mg PO BID 10 days #20 tabs 08/02/23 ondansetron 4 mg disintegrating 4 mg PO Q4H PRN nausea and 08/02/23 tablet vomiting 3 days #6 tabs prednisone 50 mg tablet 50 mg PO DAILY 5 days #5 tabs 08/02/23 cephalexin 500 mg capsule 500 mg PO BID 10 days #20 caps 01/25/24 Allergies Allergy/AdvReac Type Severity Reaction Status Date / Time No Known Drug Allergies Allergy Verified 01/25/24 17:16 Opioid HPI Opioid Management Most Recent Opioid Data: Last Pain Scale 4 01/25/24 17:26 Review of Systems ROS Narrative All Systems are negative except as noted/marked.All systems reviewed and otherwise negative Exam Narrative Exam Narrative: Nurses note and vital signs reviewed and patient is not hypoxic. General: The patient appears well and in no apparent distress. Patient is resting comfortably on cart. Skin: Warm, dry, no pallor noted. There is no rash noted. Head: Normocephalic, atraumatic Eye: Normal conjunctiva, no drainage, EOMI. PERRL Ears, Nose, Mouth, and Throat: oral mucosa is moist. Nares patent. Mouth without vesicles. Ear canals patent. Tm's without Erythema Cardiovascular: Regular Rate and Rhythm Musculoskeletal: paronychia, To the right middle finger the patient redness noted to the distal pad of the finger itself. Patient otherwise no acute distress. Full range of motion of the finger. No acute swelling of the fingertip. Neurological: A&O x4, normal speech Psychiatric: Cooperative Constitutional Vital Signs, click to edit/add: Last Vital Signs Temp 98.0 F 01/25/24 17:17 Pulse 59 L 01/25/24 17:17 Resp 16 01/25/24 17:17 BP 143/80 H 01/25/24 17:17 Pulse Ox 96 01/25/24 17:17 O2 Del Method Room Air 01/25/24 17:17 Course Vital Signs Vital signs: Vital Signs Temperature 98.0 F 01/25/24 17:17 Pulse Rate 59 L 01/25/24 17:17 Respiratory Rate 16 01/25/24 17:17 Blood Pressure 143/80 H 01/25/24 17:17 Pulse Oximetry 96 01/25/24 17:17 Oxygen Delivery Method Room Air 01/25/24 17:17 Temperature 98.0 F 01/25/24 17:17 Pulse Rate 59 L 01/25/24 17:17 Respiratory Rate 16 01/25/24 17:17 Blood Pressure 143/80 H 01/25/24 17:17 Pulse Oximetry 96 01/25/24 17:17 Oxygen Delivery Method Room Air 01/25/24 17:17 Medical Decision Making MDM Narrative Medical decision making narrative: Chief complaint with paronychia. X-ray showed a small foreign body. Patient's finger was cleaned with Hibiclens normal saline. Small scalpel was used to open up the area. Copious amount of purulent drainage was expressed. Finger was then soaked in saline. Foreign body was noted to be removed. Patient offered repeat x-ray for removal of metal piece and he denied. Patient will be able to be discharged home updated on tetanus immunization discharged home on antibiotic. Patient told to continue with warm soaks compresses. Follow-up primary care physician keep the area clean and dry unless soaking. Differential Diagnosis Differential Diagnosis: , Foreign body, paronychia Medical Records Medical records reviewed: Yes I reviewed the patient's medical records Lab Data Lab results reviewed: Yes I reviewed the patient's lab results Imaging Data finger: Attestation: I have reviewed the pertinent imaging results. My impression: small foreign body to the right middle finger medial aspect of fingernail Radiologist's impression: FINDINGS/IMPRESSION: 1. Focal dorsal distal third digit soft tissue swelling consistent with provided history of third digit paronchyia. 2. 3 mm linear metallic retained foreign body in the dorsal-radial aspect of the distal third digit soft tissues, projecting near the nailbed on the lateral view. 3. 2 mm linear metallic retained foreign body in the radial/volar aspect of the mid fourth digit soft tissues. 4. No evidence of acute osseous abnormality. Electronically authenticated by: TARUN TODD Date: 01/25/2024 18:20 Discharge Plan Discharge Chief Complaint: Wound/Laceration Clinical Impression: Paronychia of finger Patient Disposition: Home, Self-Care Time of Disposition Decision: 18:09 Condition: Good Prescriptions / Home Meds: New cephalexin 500 mg capsule 500 mg PO BID 10 Days Qty: 20 0RF No Action albuterol sulfate 90 mcg/actuation aerosol powdr breath activated 2 inh inhalation Q6H PRN (Reason: shortness of breath or wheezing) Qty: 1 0RF prednisone 20 mg tablet 40 mg PO DAILY Qty: 10 0RF budesonide-formoterol [Symbicort] 80-4.5 mcg/actuation HFA aerosol inhaler 1 inh inhalation BID albuterol sulfate 90 mcg/actuation HFA aerosol inhaler 1 puff INHALATION Q6H PRN (Reason: shortness of breath or wheezing) benzonatate 100 mg capsule 200 mg PO TID PRN (Reason: cough) Qty: 20 0RF prednisone 50 mg tablet 50 mg PO DAILY 5 Days Qty: 5 0RF ondansetron 4 mg tablet,disintegrating 4 mg PO Q4H PRN (Reason: nausea and vomiting) 3 Days Qty: 6 0RF doxycycline hyclate 100 mg tablet 100 mg PO BID 10 Days Qty: 20 0RF Print Language: Senegalese Instructions: Paronychia (ED) Referrals: Physician,Non-Staff, MD [Primary Care Provider] - 1 week
[2024-01-25] MEDS: CEPHALEXIN 500 MG CAPSULE PO (18:18)
[2024-01-25] MEDS: MUPIROCIN 2% OINTMENT 22 GRAM TUBE 1 APPLIC TOPICAL (18:23)
[2024-01-25 18:44] VITALS: PULSE 84; O2SAT 99
== END 2024-01-25 18:45 | disposition home or self-care (01) ==
PROVIDERS: Emergency Provider Emergency Medicine Emergency Medical Services
DX: L03.011 Cellulitis of right finger (principal); Z23 Encounter for immunization
CPT/HCPCS: 10060; 73140; 90471; 90715; 99284

== ENCOUNTER 2024-04-12 16:03 | Emergency (ER) | payer MEDICARE, SELFPAY ==
[2024-04-12 16:07] VITALS: BP 167/98; PULSE 82; TEMP 36.7; O2SAT 97; BMI 24.0
--- OUTSIDE RECORDS SUMMARY | 2024-04-12 16:13 | XMS_ITS | CCD ---
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 Name Role Phone PHYSICIAN, DEFAULT Unavailable Unavailable PHYSICIAN, DEFAULT Unavailable Unavailable CRISTY PLEITEZ Unavailable Unavailable REMI GRAJEDA Consulting Unavailable KITA MARTI Admitting Unavail able CONCHITA TAVARES Attending Unavailable Unavailable Primary Care Provider UnavailREGINALDO Lyons Referring Unavailable VERONICA FREIRE Admitting Unavailable VERONICA FREIRE Consulting Unavailable VERONICA FREIRE Attending Unavailable [facility] LARA Primary Care Unavailable DELFINO CLAROS Consulting [facility] Primary Care Unavailable REGINALDO AGOSTO Admitting Unavailable [...] Start: 02-20-2019 End: 02-20-2019 lidocaine-EPINEPHr ine 1 percent-[id number] injection 20 mL Problems Active Problems Problem [...] 09-13-2022 Episodic Other aftercare (2 sources) Other intermediate (current) drug therapy; Translations: [Other termite control [...] 09-13-2022 BASO # 0.1 103/ul Normal 0.0-0.1 [facility] Comment on above: Performed By: #### C BC #### [facility] [address] [address] [address] Rachel Pulido Basophils/100 WBC (Bld) 0.9 % Normal 0.2-2.0 [facility] Comment on above: Performed By: #### C BC #### [facility] [address] [address] [address] Rachel Pulido EO # 0.2 103/ul Normal 0.0-0.7 [facility] Comment on above: Performed By: #### C BC #### [facility] [address] [place] [address] Dr. Rachel Pulido Eosinophils/100 WBC (Bld) 1.5 % Normal 0.9-7.0 [facility] Comment on above: Performed By: #### C BC #### [facility] [address] [place] [address] Dr. Rachel Pulido Erythrocyte distribution width (RBC) [Ratio] 13.4 % Normal 11.0-15.0 [facility] Comment on above: Performed By: #### C BC #### [facility] [address] [place] [address] Dr. Rachel Pulido Hematocrit (Bld) [Volume fraction] 45.4 % Normal 42.0-54.0 [facility] Comment on above: Performed By: #### C BC #### [facility] [address] [place] [address] Dr. Rachel Pulido Hemoglobin (Bld) [Mass/Vol] 14.8 g/dL Normal 14.0-18.0 [facility] Comment on above: Performed By: #### C BC #### [facility] [address] [place] [address] Dr. Rachel Pulido IG # 0.07 10e3/ul Critically high 0.00-0.03 [facility] Comment on above: Performed By: #### C BC #### [facility] [address] [place] [address] Dr. Rachel Pulido IG % 0.7 % Critically high 0.0-0.5 [facility] Comment on above: Performed By: #### C BC #### [facility] [address] [place] [address] Dr. Rachel Pulido LYMPH # 1.9 103/ul Normal 1.2-3.8 [facility] Comment on above: Performed By: #### C BC #### [facility] [address] [place] [address] Dr. Rachel Pulido Lymphocytes/100 WBC (Bld) 18.7 % Critically low 20.5-60.0 [facility] Comment on above: Performed By: #### C BC #### [facility] [address] [place] [address] Dr. Rachel Pulido MANUAL DIFF REQ NO Normal [facility] Comment on above: Performed By: #### C BC #### [facility] [address] [place] [address] Dr. Rachel Pulido MCH (RBC) [Entitic mass] 30.2 pg Normal 25.9-34.0 [facility] Comment on above: Performed By: #### C BC #### [facility] [address] [place] [address] Dr. Rachel Pulido MCHC (RBC) [Mass/Vol] 32.6 g/dL Normal 29.9-35.2 [facility] Comment on above: Performed By: #### C BC #### [facility] [address] [place] [address] Dr. Rachel Pulido MCV (RBC) [Entitic vol] 92.7 fL Normal 80.0-94.0 [facility] Comment on above: Performed By: #### C BC #### [facility] [address] [place] [address] Dr. Rachel Pulido MONO # 1.0 103/ul Critically high 0.3-0.8 [facility] Comment on above: Performed By: #### C BC #### [facility] [address] [place] [address] Dr. Rachel Pulido Monocytes/100 WBC (Bld) 9.6 % Normal 1.7-12.0 [facility] Comment on above: Performed By: #### C BC #### [facility] [address] [place] [address] Dr. Rachel Pulido NEUT # 7.1 103/ul Critically high 1.4-6.5 [facility] Comment on above: Performed By: #### C BC #### [facility] [address] [place] [address] Dr. Rachel Pulido Neutrophils/100 WBC (Bld) 68.6 % Normal 43.0-75.0 [facility] Comment on above: Performed By: #### C BC #### [facility] [address] [address] [address] Rachel Pulido Platelet mean volume (Bld) [Entitic vol] 9.8 fL Normal 9.5-13.5 [facility] Comment on above: Performed By: #### C BC #### [facility] [address] [address] [address] Rachel Pulido PLT 263 103/ul Normal 150-450 [facility] Comment on above: Performed By: #### C BC #### [facility] [address] [address] [address] Rachel Pulido RBC 4.90 106/ul Normal 4.70-6.10 [facility] Comment on above: Performed By: #### C BC #### [facility] [address] [place] [address] Dr. Rachel Pulido WBC 10.4 103/ul Normal 4.0-11.0 [facility] Comment on above: Performed By: #### C BC #### [facility] [address] [place] [address] ABD/PELVIS WO CONon [...] DELFINO CAMULISES Date: 2022-09-13 11:34 Normal [facility] ER URINE PROFILEon 3 Bilirubin Ql (U) Negative Normal NEGATIVE [facility] Comment on above: Performed By: #### E RUR #### [facility] [address] [place] [address] Dr. Rachel Pulido Clarity (U) CLEAR Normal CLEAR [facility] Comment on above: Performed By: #### E RUR #### [facility] [address] [place] [address] Dr. Rachel Pulido Color (U) LT. YELLOW Normal YELLOW [facility] Comment on above: Performed By: #### E RUR #### [facility] [address] [place] [address] Dr. Rachel PICKARD A micrscopic examination will be performed if indicated. Normal [facility] Comment on above: Performed By: #### E RUR #### [facility] [address] [place] [address] Dr. Rachel Pulido Glucose Ql (U) Negative Normal NEGATIVE [facility] Comment on above: Performed By: #### E RUR #### [facility] [address] [address] [address] Rachel Pulido Hemoglobin Ql (U) Negative Normal NEGATIVE [facility] Comment on above: Performed By: #### E RUR #### [facility] [address] [address] [address] Rachel Pulido Ketones Ql (U) Negative Normal NEGATIVE [facility] Comment on above: Performed By: #### E RUR #### [facility] [address] [place] [address] Dr. Rachel Pulido LEUKOCYTES Negative Normal NEGATIVE [facility] Comment on above: Performed By: #### E RUR #### [facility] [address] [place] [address] Dr. Rachel Pulido Nitrite Ql (U) Negative Normal NEGATIVE [facility] Comment on above: Performed By: #### E RUR #### [facility] [address] [place] [address] Dr. Rachel Pulido pH (U) 5.5 [pH] Normal 5-9 [facility] Comment on above: Performed By: #### E RUR #### [facility] [address] [place] [address] Dr. Rachel Pulido SPEC GRAVITY >=1.030 Abnormal 1.005-<=1.025 [facility] Comment on above: Performed By: #### E RUR #### [facility] [address] [place] [address] Dr. Rachel Pulido UA PROTEIN Negative Normal NEGATIVE/ TRACE [facility] Comment on above: Performed By: #### E RUR #### [facility] [address] [place] [address] Dr. Rachel Pulido UR MICRO IND NOT INDICATED Normal [facility] Comment on above: Performed By: #### E RUR #### [facility] [address] [place] [address] Dr. Rachel Pulido Urobilinogen Qn (U) 0.2 {Angella'U}/dL Normal 0.2 - 1. 0 [facility] Comment on above: Performed By: #### E RUR #### [facility] [address] [place] [address] Dr. Rachel Pulido PROF 14(COMP METB)on 09-13- 023 Albumin [Mass/Vol] 3.9 g/dL Normal 3.4-5.0 [facility] Comment on above: Performed By: #### C MP #### [facility] [address] [place] [address] Dr. Rachel Pulido Albumin/Globulin [Mass ratio] 1.1 {ratio} Normal [facility] Comment on above: Performed By: #### C MP #### [facility] [address] [place] [address] Dr. Rachel Pulido ALP [Catalytic activity/Vol] 110 U/L Normal 46-116 [facility] Comment on above: Performed By: #### C MP #### [facility] [address] [place] [address] Dr. Rachel Pulido ALT [Catalytic activity/Vol] 20 U/L Normal 16-63 [facility] Comment on above: Performed By: #### C MP #### [facility] [address] [place] [address] Dr. Rachel Pulido Anion gap [Moles/Vol] 8.9 mmol/L Normal [facility] Comment on above: Performed By: #### C MP #### [facility] [address] [place] [address] Dr. Rachel Pulido AST [Catalytic activity/Vol] 16 U/L Normal 15-37 [facility] Comment on above: Performed By: #### C MP #### [facility] [address] [place] [address] Dr. Rachel Pulido Bilirubin [Mass/Vol] 0.2 mg/dL Normal 0.2-1.0 [facility] Comment on above: Performed By: #### C MP #### [facility] [address] [place] [address] Dr. Rachel Pulido Calcium [Mass/Vol] 9.3 mg/dL Normal 8.5-10.1 [facility] Comment on above: Performed By: #### C MP #### [facility] [address] [place] [address] Dr. Rachel Pulido Chloride [Moles/Vol] 106 mmol/L Normal 98-107 [facility] Comment on above: Performed By: #### C MP #### [facility] [address] [place] [address] Dr. Rachel Pulido CO2 [Moles/Vol] 32.0 mmol/L Normal 21.0-32.0 [facility] Comment on above: Performed By: #### C MP #### [facility] [address] [place] [address] Dr. Rachel Pulido Creatinine [Mass/Vol] 0.80 mg/dL Normal 0.70-1.30 [facility] Comment on above: Performed By: #### C MP #### [facility] [address] [address] [address] Rachel Pulido EGFR-AF PALESTINIAN >60 Normal >=60 [facility] Comment on above: Performed By: #### C MP #### [facility] [address] [address] [address] Rachel Pulido EGFR-NON AF PALESTINIAN >60 Normal >=60 [facility] Comment on above: Performed By: #### C MP #### [facility] [address] [address] [address] Rachel Pulido Globulin (S) [Mass/Vol] 3.7 g/dL Normal [facility] Comment on above: Performed By: #### C MP #### [facility] [address] [place] [address] Dr. Rachel Pulido Glucose [Mass/Vol] 92 mg/dL Normal 74-106 [facility] Comment on above: Performed By: #### C MP #### [facility] [address] [address] [address] Rachel Pulido Potassium [Moles/Vol] 4.9 mmol/L Normal 3.5-5.1 [facility] Comment on above: Performed By: #### C MP #### [facility] [address] [place] [address] Dr. Rachel Pulido Protein [Mass/Vol] 7.6 g/dL Normal 6.4-8.[address] [facility] Comment on above: Performed By: #### C MP #### [facility] [address] [address] [address] Rachel Pulido Sodium [Moles/Vol] 142 mmol/L Normal 136-[address] [facility] Comment on above: Performed By: #### C MP #### [facility] [address] [address] [address] Rachel Pulido Urea nitrogen [Mass/Vol] 15.0 mg/dL Normal 7.0-18.0 [facility] Comment on above: Performed By: #### C MP #### [facility] [address] [place], [place] [address] Dr. Rachel Pulido Urea nitrogen/Creatinine [Mass ratio] 18.8 mg/mg Normal [facility] Comment on above: Performed By: #### C MP #### [facility] [address] [place], [place] [address] Dr. Rachel Pulido THC, Ur Confirmationon 06-19 THC Confirm 34 ng/mL Normal [facility] Comment on above: Result Comment: (NOT E) INTERPRETIVE INFORMATION: THC Metabolite, Urine, Quantitative Methodology: Quantitative Liquid Chromatography-Tandem Mass Spectrometry Positive cutoff: 15 ng/mL For medical purposes only; not valid for forensic use. The drug analyte detected in this assay, 9-carboxy THC, is a metabolite of ulmzw-0-fymnpiavuohtcfefgido (THC). Detection of 9-carboxy THC suggests use [...] developed and its performance characteristics determined by [employer] [facility]. It has not been cleared or approved by the [place] Food and Drug Administration. This test was performed in a CLIA certified laboratory and is intended for clinical purposes. Performed By: [facility] [address] [place] [address] Mixer Machine Feeder: Dhruv Hu MD, PhD Performed By: #### A THCCO, ADAU9U #### [employer] [address] [place] [address] Panelboard Assembler: Wali Beaulieu MD #### ABRAHAM #### [facility] [address] [place] [address] Panelboard Assembler: Michael Deng MD #### SHRUTHI LONGORIA #### [facility] [address] [place] [address] Panelboard Assembler: Deangelo Neal MD #### COVID #### [address] [address] Panelboard Assembler: Michael Deng MD [facility] [address] [place] [address] [place] [address] Panelboard Assembler: Deangelo Neal MD Drugs of Abuse,Urineon 06-18 Alcohol, Ur Negative Normal Cutoff 40 [facility] Comment on above: Performed By: #### A THCCO, ADAU9U #### [facility] [address] [place] [address] Panelboard Assembler: Wali Beaulieu MD #### URURI #### [address] [address] Panelboard Assembler: Michael Deng MD #### FLUABA, SHRUTHI #### [address] [place], [place] [id number] Panelboard Assembler: Deangelo Neal MD #### COVID #### [address] [address] Panelboard Assembler: Michael Deng MD [facility] [address] [place] [address] [place] [address] Panelboard Assembler: Deangelo Neal MD Amphetamine, Ur Negative Normal Cutoff 300 [facility] Comment on above: Performed By: #### A THCCO, ADAU9U #### [facility] [address] [place] [address] Panelboard Assembler: Wali Beaulieu MD #### URURI #### [address] [address] Panelboard Assembler: Michael Deng MD #### FLUABA, SHRUTHI #### [facility] [address] [place], [place] [id number] Panelboard Assembler: Deangelo Neal MD #### COVID #### [address] [address] Panelboard Assembler: Michael Deng MD [facility] [address] [place] [address] Dr[place], [place] [id number] Panelboard Assembler: Deangelo Neal MD Barbiturates, Ur Negative Normal Cutoff 200 [facility] Comment on above: Performed By: #### A THCCO, ADAU9U #### [facility] [address] [place] [address] Panelboard Assembler: Wali Beaulieu MD #### URURI #### [address] [address] Panelboard Assembler: Michael Deng MD #### FLUABA, SHRUTHI #### [address] [place] [address] Panelboard Assembler: Deangelo Neal MD #### COVID #### [address] [address] Panelboard Assembler: Michael Deng MD [address] [place], [place] 8502383 Panelboard Assembler: Deangelo Neal MD Benzodiazepines, Ur Negative Normal Cutoff 200 [facility] Comment on above: Performed By: #### A THCCO, ADAU9U #### [facility] [address] [place] [address] Panelboard Assembler: Wali Beaulieu MD #### URURI #### [address] [address] Panelboard Assembler: Michael Deng MD #### FLUABA, SHRUTHI #### [address] [place], [place] [phone] Panelboard Assembler: Deangelo Neal MD #### COVID #### [address] [address] Panelboard Assembler: Michael Deng MD [address] [place] [address] Panelboard Assembler: Deangelo Neal MD Cocaine, Ur Negative Normal Cutoff 150 [facility] Comment on above: Performed By: #### A THCCO, ADAU9U #### [facility] [address] [place] [address] Panelboard Assembler: Wali Beaulieu MD #### URURI #### [facility] [address] [place], [place] [phone] Panelboard Assembler: Michael Deng MD #### FLUABA, SHRUTHI #### [facility] [address] [place] [address] Panelboard Assembler: Deangelo Neal MD #### COVID #### [facility] [address] [place] [address] Panelboard Assembler: Michael Deng MD [facility] [address] [place] [address] [place] [address] Panelboard Assembler: Deangelo Neal MD Comments See Note Normal [facility] Comment on above: Result Comment: (NOT [...] opioid testing can be ordered. Refer to [employer] for test information. Performed by [facility], [address] [place] [address] [phone] [email or web address].[email or web address], Dhruv Hu MD, PHD, Lab. Director Performed By: #### A THCCO, ADAU9U #### [facility] [address] [place] [phone] Panelboard Assembler: Wali Beaulieu MD #### URURI #### [address] [address] Panelboard Assembler: Michael Deng MD #### FLUABA, SHRUTHI #### [address] [place] [address] Panelboard Assembler: Deangelo Neal MD #### COVID #### [address] [address] Panelboard Assembler: Michael Deng MD [address] [place] [address] Panelboard Assembler: Deangelo Neal MD Creatinine, Ur <20.0 Low 20.0-400.0 [facility] Comment on above: Result Comment: (NOT E) Creatinine <20 mg/dL is consistent with a dilute urine specimen. Recollection to obtain a more concentrated specimen, such as a first morning void, may be considered if unexpected negative urine drug screening results were obtained. Performed By: #### A THCCO, ADAU9U #### [facility] [address] [place] [address] Panelboard Assembler: Wali Beaulieu MD #### URURI #### [address] [address] Panelboard Assembler: Michael Deng MD #### FLUABA, SHRUTHI #### [address] [place], [place] [id number] Panelboard Assembler: Deangelo Neal MD #### COVID #### [address] [address] Panelboard Assembler: Michael Deng MD [address] [place], [place] [phone] Panelboard Assembler: Deangelo Neal MD Marijuana, Ur Positive Normal Cutoff 20 [facility] Comment on above: Result Comment: (NOT E) If the screen is positive, then confirmation testing by mass spectrometry will be added. Additional charges will apply. Performed By: #### A THCCO, ADAU9U #### [facility] [address] [place] [address] Panelboard Assembler: Wali Beaulieu MD #### URURI #### [address] [address] Panelboard Assembler: Michael Deng MD #### FLUKUSUM, SHRUTHI #### [address] [place], [place] [phone] Panelboard Assembler: Deangelo Neal MD #### COVID #### [address] [address] Panelboard Assembler: Michael Deng MD [address] [place], [place] [phone] Panelboard Assembler: Deangelo Neal MD Methadone, Ur Negative Normal Cutoff 150 [facility] Comment on above: Performed By: #### A THCCO, ADAU9U #### [facility] [address] [place] [address] Panelboard Assembler: Wali Beaulieu MD #### URURI #### [address] [address] Panelboard Assembler: Michael Deng MD #### FLUABA, SHRUTHI #### [address] [place], [place] [phone] Panelboard Assembler: Deangelo Neal MD #### COVID #### [address] [address] Panelboard Assembler: Michael Deng MD [facility] [address] [place] [address] Dr[place], [place] [phone] Panelboard Assembler: Deangelo Neal MD Opiates, Ur Negative Normal Cutoff 300 [facility] Comment on above: Performed By: #### A THCCO, ADAU9U #### [facility] [address] [place] [address] Panelboard Assembler: Wali Beaulieu MD #### URURI #### [address] [address] Panelboard Assembler: Michael Deng MD #### FLUABA, SHRUTHI #### [facility] [address] [place] [address] Dr[place], [place] [phone] Panelboard Assembler: Deangelo Neal MD #### COVID #### [address] [address] Panelboard Assembler: Michael Deng MD [facility] [address] [place] [address] Dr[place], [place] [phone] Panelboard Assembler: Deangelo Neal MD Phencyclidine, Ur Negative Normal Cutoff 25 [facility] Comment on above: Performed By: #### A THCCO, ADAU9U #### [facility] [address] [place] [address] Panelboard Assembler: Wali Beaulieu MD #### URURI #### [address] [address] Panelboard Assembler: Michael Deng MD #### FLUABA, SHRUTHI #### [facility] [address] [place] [address] Dr[place], [place] [phone] Panelboard Assembler: Deangelo Neal MD #### COVID #### [address] [address] Panelboard Assembler: Michael Deng MD [facility] [address] [place], [place] [phone] Panelboard Assembler: Deangelo Neal MD Propoxyphene, Ur Negative Normal Cutoff 300 [facility] Comment on above: Performed By: #### A THCCO, ADAU9U #### [facility] [address] [place] [address] Panelboard Assembler: Wali Beaulieu MD #### URURI #### [facility] [address], [place] [phone] Panelboard Assembler: Michael Deng MD #### FLUABA, SHRUTHI #### [facility] [address] [place], [place] [phone] Panelboard Assembler: Deangelo Neal MD #### COVID #### [facility] [address] [place] [address] Panelboard Assembler: Michael Deng MD [facility] [address] [place], [place] [phone] Panelboard Assembler: Deangelo Neal MD [id number] 06-17-2022 SARS-CoV-2 (COVID-19) RNA HENOK+probe Ql (Unsp spec) Not detected Normal [facility] Comment on above: Result Comment: The specimen is NEGATIVE for SARS-CoV-2, the novel coronavirus associated with COVID-19. A negative result does not rule out COVID-19. This test has been authorized by the FDA under an Emergency Use Authorization (EUA) for use by authorized laboratories. BD SARS-CoV-2 Reagents for [facility] [employer] are designed to detect the virus that causes COVID-19 in patients with signs and symptoms of infection who are suspected of COVID-19. Fact sheet for Healthcare Providers: https://www.fda.gov/media/543761/download Fact sheet for Patients: https://www.fda.gov/media/213988/download METHODOLOGY: RT-PCR Performed By: #### A TIFFANY, ADAU9U #### [facility] [address] [place] [address] Panelboard Assembler: Wali Beaulieu MD #### URURI #### [address] [address] Panelboard Assembler: Michael Deng MD #### FLUKUSUM, SHRUTHI #### [address] [place] [phone] Panelboard Assembler: Deangelo Neal MD #### COVID #### [address] [address] Panelboard Assembler: Michael Deng MD [address] [place] [phone] Panelboard Assembler: Deangelo Neal MD SARS-CoV-2 (COVID-19) RNA HENOK+probe Ql (Unsp spec) [facility] Comment on above: Performed By: #### A THCCO, ADAU9U #### [facility] [address] [place] [address] Panelboard Assembler: Wali Beaulieu MD #### URURI #### [address] [address] Panelboard Assembler: Michael Deng MD #### VON SHRUTHI #### [address] [place] [phone] Panelboard Assembler: Deangelo Neal MD #### COVID #### [address] [address] Panelboard Assembler: Michael Deng MD [address] [place] [address] Panelboard Assembler: Deangelo Neal MD Uric Acid, Random Uron 06-17 Uric Acid conc. <4.0 [facility] Comment on above: Result Comment: No n ormal range established. Performed By: #### A THCCO, ADAU9U #### [facility] [address] [place] [address] Panelboard Assembler: Wali Beaulieu MD #### URURI #### [address] [address] Panelboard Assembler: Michael Deng MD #### FLUABA, SHRUTHI #### [address] [place], [place] [phone] Panelboard Assembler: Deangelo Neal MD #### COVID #### [address] [address] Panelboard Assembler: Michael Deng MD [address] [place] [phone] Panelboard Assembler: Deangelo Neal MD Drug Scr, Abuse, Uron 2022 Amphetamine(s),Ur Negative Normal NEG [facility] Comment on above: Result Comment: (Positive cutoff 1000 ng/mL) Performed By: #### A THCCO, ADAU9U #### [facility] [address] [place] [address] Panelboard Assembler: Wali Beaulieu MD #### URURI #### [address] [address] Panelboard Assembler: Michael Deng MD #### FLUABA, SHRUTHI #### [address] [place] [address] Panelboard Assembler: Deangelo Neal MD #### COVID #### [address] [address] Panelboard Assembler: Michael Deng MD [address] [place] [address] Panelboard Assembler: Deangelo Neal MD Barbiturate(s),Ur Negative Normal NEG [facility] Comment on above: Result Comment: (Positive cutoff 200 ng/mL) Performed By: #### A THCCO, ADAU9U #### [facility] [address] [place] [address] Panelboard Assembler: Wali Beaulieu MD #### URURI #### [address] [address] Panelboard Assembler: Michael Deng MD #### FLUABA, SHRUTHI #### [address] [place] [address] Panelboard Assembler: Deangelo Neal MD #### COVID #### [address] [address] Panelboard Assembler: Michael Deng MD [address] [place] [address] Panelboard Assembler: Deangelo Neal MD Benzodiazepine(s) Negative Normal NEG [facility] Comment on above: Result Comment: (Positive cutoff 200 ng/mL) Performed By: #### A THCCO, ADAU9U #### [facility] [address] [place] [address] Panelboard Assembler: Wali Beaulieu MD #### URURI #### [address] [address] Panelboard Assembler: Michael Deng MD #### FLUKUSUM, SHRUTHI #### [address] [place], [place] 7753183 Panelboard Assembler: Deangelo Neal MD #### COVID #### [address] [address] Panelboard Assembler: Michael Deng MD [address] [place], [place] 9954483 Panelboard Assembler: Deangelo Neal MD Buprenorphrine, Ur Negative Normal NEG [facility] Comment on above: Result Comment: (Positive cutoff 5 ng/ml) Performed By: #### A THCCO, ADAU9U #### [facility] [address] [place] [address] Panelboard Assembler: Wali Beaulieu MD #### URURI #### [address] [address] Panelboard Assembler: Michael Deng MD #### FLUABA, SHRUTHI #### [address] [place], [place] 6334983 Panelboard Assembler: Deangelo Neal MD #### COVID #### [address] [address] Panelboard Assembler: Michael Deng MD [address] [place], [place] 5562283 Panelboard Assembler: Deangelo Neal MD Cannabinoid(s),Ur Positive Abnormal NEG [facility] Comment on above: Result Comment: (Positive cutoff 50 ng/mL) Performed By: #### A THCCO, ADAU9U #### [facility] [address] [place] [address] Panelboard Assembler: Wali Beaulieu MD #### URURI #### [address] [address] Panelboard Assembler: Michael Deng MD #### FLUKUSUM, SHRUTHI #### [address] [place], [place] 9163383 Panelboard Assembler: Deangelo Neal MD #### COVID #### [address] [address] Panelboard Assembler: Michael Deng MD [address] [place] [address] Panelboard Assembler: Deangelo Neal MD Cocaine Metabolite Negative Normal NEG [facility] Comment on above: Result Comment: (Positive cutoff 300 ng/mL) Performed By: #### A THCCO, ADAU9U #### [facility] [address] [place] [address] Panelboard Assembler: Wali Beaulieu MD #### URURI #### [facility] [address] [place] [address] Panelboard Assembler: Michael Deng MD #### FLUABA, SHRUTHI ####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
--- NOTE | 2024-04-12 16:17 | ED.SKABFB1 ---
HPI - Skin/Abscess/Foreign Bdy General Chief complaint: Skin/Abscess/Foreign Body Stated complaint: rash Time Seen by Provider: 04/12/24 16:05 Source: patient Mode of arrival: walk-in History of Present Illness HPI narrative: Patient is a 64-year-old male with a history of COPD who presents to the emergency department for 2-day history of an erythematous pruritic rash on the volar aspect of his right forearm. He believes he was exposed to possible poison ramya in his trailer. There has been no drainage of the area. He has not had any fevers, vomiting. No history of diabetes. No injury to the area. He states he can feel the rash extending up the forearm although there was not noted to be any redness there. Related Data Home Medications ?Medication ?Instructions ?Recorded ?Confirmed albuterol sulfate 90 mcg/actuation 1 puff inhalation Q6H PRN 08/02/23 04/12/24 aerosol inhaler shortness of breath or wheezing budesonide-formoterol HFA 80 1 inh inhalation BID 08/02/23 04/12/24 mcg-4.5 mcg/actuation aerosol inhaler (Symbicort) sildenafil 100 mg tablet 100 mg PO Q24H PRN sexual activity 04/12/24 04/12/24 Previous Rx's ?Medication ?Instructions ?Recorded albuterol sulfate 90 mcg/actuation 2 inh inhalation Q6H PRN shortness 03/11/23 breath activated powder inhaler of breath or wheezing #1 ea benzonatate 100 mg capsule 200 mg (2 x 100 mg) PO TID PRN 08/02/23 cough #20 caps cephalexin 500 mg capsule 500 mg PO Q8H 10 days #30 caps 04/12/24 hydroxyzine HCl 25 mg tablet 25 mg PO Q6H PRN itching #20 tabs 04/12/24 prednisone 20 mg tablet See Rx Instructions .Route 04/12/24 .COMPLEX #12 tabs Allergies Allergy/AdvReac Type Severity Reaction Status Date / Time No Known Drug Allergies Allergy Verified 01/25/24 17:16 Review of Systems ROS Constitutional Denies: fever or chills Ears, nose, mouth, and throat Denies: throat pain or nasal congestion Respiratory Denies: shortness of breath Gastrointestinal Denies: nausea or vomiting Integumentary/Breast Reports: rash, itching and redness Neurological Denies: numbness in extremities or weakness in extremities Hematologic/Lymphatic Denies: easy bruising or easy bleeding PFSH PFSH Social History Little interest or pleasure in doing things: not at all Feeling down, depressed, or hopeless: not at all Exam Narrative Exam Narrative: Gen.: Awake, alert, in no distress Head: Normocephalic, atraumatic ENT: Moist mucous membranes Respiratory: No respiratory distress Extremities: Moves extremities equally Psych: Normal mood and affect Neuro: No focal neuro deficit Skin: Warm, dry, intact; erythematous rash noted to the volar right forearm with no circumferential erythema or red streaking. No petechia or purpura. No blistering or crusting. No open wounds. Constitutional Vital Signs, click to edit/add: Last Vital Signs Temp 98.1 F 04/12/24 16:07 Pulse 82 04/12/24 16:07 Resp 16 04/12/24 16:07 BP 167/98 H 04/12/24 16:07 Pulse Ox 97 04/12/24 16:07 O2 Del Method Room Air 04/12/24 16:07 Course Vital Signs Vital signs: Vital Signs Temperature 98.1 F 04/12/24 16:07 Pulse Rate 82 04/12/24 16:07 Respiratory Rate 16 04/12/24 16:07 Blood Pressure 167/98 H 04/12/24 16:07 Pulse Oximetry 97 04/12/24 16:07 Oxygen Delivery Method Room Air 04/12/24 16:07 Temperature 98.1 F 04/12/24 16:07 Pulse Rate 82 04/12/24 16:07 Respiratory Rate 16 04/12/24 16:07 Blood Pressure 167/98 H 04/12/24 16:07 Pulse Oximetry 97 04/12/24 16:07 Oxygen Delivery Method Room Air 04/12/24 16:07 MDM - Skin/Abscess/Foreign Bdy MDM Narrative Medical decision making narrative: Exam and history are consistent with possible contact dermatitis, however the area is concentrated to the forearm so the patient was instructed to take an antibiotic as well in case he is developing early cellulitis. There are no open wounds. He is not diabetic and there is no circumferential erythema. Follow-up with PCP. Patient is started on Keflex, prednisone and Atarax for itching. Return to the emergency department if symptoms change or worsen SUPERVISED APC VISIT, PHYSICIAN ATTESTATION: Based on the medical record the care appears appropriate. ? Medical Records Attestation: I reviewed the patient's medical records. Discharge Plan Discharge Chief Complaint: Skin/Abscess/Foreign Body Clinical Impression: Contact dermatitis, Skin rash Patient Disposition: Home, Self-Care Time of Disposition Decision: 16:15 Condition: Good Prescriptions / Home Meds: New prednisone 20 mg tablet See Rx Instructions .ROUTE .COMPLEX Qty: 12 0RF Rx Instructions: 3 tabs daily for 2 days, then 2 tabs daily for 2 days, then 1 tab daily for 2 days cephalexin 500 mg capsule 500 mg PO Q8H 10 Days Qty: 30 0RF hydroxyzine HCl 25 mg tablet 25 mg PO Q6H PRN (Reason: itching) Qty: 20 0RF No Action albuterol sulfate 90 mcg/actuation aerosol powdr breath activated 2 inh inhalation Q6H PRN (Reason: shortness of breath or wheezing) Qty: 1 0RF budesonide-formoterol [Symbicort] 80-4.5 mcg/actuation HFA aerosol inhaler 1 inh inhalation BID albuterol sulfate 90 mcg/actuation HFA aerosol inhaler 1 puff INHALATION Q6H PRN (Reason: shortness of breath or wheezing) benzonatate 100 mg capsule 200 mg PO TID PRN (Reason: cough) Qty: 20 0RF sildenafil 100 mg tablet 100 mg PO Q24H PRN (Reason: sexual activity) Print Language: Australian Instructions: Contact Dermatitis (ED), Acute Rash (ED) Referrals: Physician,Non-Staff, MD [Primary Care Provider] - 1 week
[2024-04-12 16:26] VITALS: PULSE 78; O2SAT 99
== END 2024-04-12 16:26 | disposition home or self-care (01) ==
PROVIDERS: Emergency Provider Emergency Medicine
DX: L25.9 Unspecified contact dermatitis, unspecified cause (principal); J44.9 Chronic obstructive pulmonary disease, unspecified
CPT/HCPCS: 99283

== ENCOUNTER 2025-02-01 14:18 | Emergency (ER) | payer MEDICARE, SELFPAY ==
[2025-02-01 14:21] VITALS: BP 147/105; PULSE 110; TEMP 36.7; O2SAT 96; BMI 25.7
--- NOTE | 2025-02-01 14:32 | PC.NURSE ---
possible lump felt to left side back of neck, skin is intact and neck ROM wnl. No redness or bruising to site.
--- OUTSIDE RECORDS SUMMARY | 2025-02-01 14:41 | XMS_ITS | CCD ---
Author Organization [place] [facility] Care Team Providers Care Education Associate Name Role Phone PHYSICIAN, DEFAULT Unavailable Unavailable PHYSICIAN, DEFAULT Unavailable Unavailable CRISTY PLEITEZ Unavailable Unavailable REMI GRAJEDA Consulting Unavailable KITA MARTI Admitting Unavail able CONCHITA TAVARES Attending Unavailable Unavailable Primary Care Provider UnavailREGINALDO Lyons Referring Unavailable VERONICA FREIRE Admitting Unavailable VERONICA FREIRE Consulting Unavailable VERONICA FREIRE Attending Unavailable [facility] [place] Primary Care Unavailable DELFINO CLAROS Consulting [facility] Unavailable REGINALDO AGOSTO [...] Start: 02-20-2019 End: 02-20-2019 lidocaine-EPINEPHr ine 1 percent-1:[id number] injection 20 mL Problems Active Problems Problem [...] 09-13-2022 Episodic Other aftercare (2 sources) 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 Comment on above: Performed By: #### C BC #### [facility] [address] [address] [address] Rachel Pulido Basophils/100 WBC (Bld) 0.9 % Normal 0.2-2.[address] [facility] Comment on above: Performed By: #### C BC #### [facility] [address] [address] [address] Rachel Pulido EO # 0.2 103/ul Normal 0.0-0.7 [facility] Comment on above: Performed By: #### C BC #### [facility] [address] [place] [address] Dr. Rachel Pulido Eosinophils/100 WBC (Bld) 1.5 % Normal 0.9-7.[address] [facility] Comment on above: Performed By: #### C BC #### [facility] [address] [place] [address] Dr. Rachel Pulido Erythrocyte distribution width (RBC) [Ratio] 13.4 % Normal 11.0-15.[address] [facility] Comment on above: Performed By: #### C BC #### [facility] [address] [place] [address] Dr. Rachel Pulido Hematocrit (Bld) [Volume fraction] 45.4 % Normal 42.0-54.[address] [facility] Comment on above: Performed By: #### C BC #### [facility] [address] [place] [address] Dr. Rachel Pulido Hemoglobin (Bld) [Mass/Vol] 14.8 g/dL Normal 14.0-18.[address] [facility] Comment on above: Performed By: #### C BC #### [facility] [address] [place] [address] Dr. Rachel Pulido IG # 0.07 10e3/ul Critically high 0.00-0.03 [facility] Comment on above: Performed By: #### C BC #### [facility] [address] [place] [address] Dr. Rachel Pulido IG % 0.7 % Critically high 0.0-0.5 [facility] Comment on above: Performed By: #### C BC #### [facility] [address] [place] [address] Dr. Rachel Pulido LYMPH # 1.9 103/ul Normal 1.2-3.8 [facility] Comment on above: Performed By: #### C BC #### [facility] [address] [place] [address] Dr. Rachel Pulido Lymphocytes/100 WBC (Bld) 18.7 % Critically low 20.5-60.[address] [facility] Comment on above: Performed By: #### C BC #### [facility] [address] [place] [address] Dr. Rachel Pulido MANUAL DIFF REQ NO Normal [facility] Comment on above: Performed By: #### C BC #### [facility] [address] [place] [address] Dr. Rachel Pulido MCH (RBC) [Entitic mass] 30.2 pg Normal 25.9-34.[address] [facility] Comment on above: Performed By: #### C BC #### [facility] [address] [place] [address] Dr. Rachel Pulido MCHC (RBC) [Mass/Vol] 32.6 g/dL Normal 29.9-35.[address] [facility] Comment on above: Performed By: #### C BC #### [facility] [address] [place] [address] Dr. Rachel Pulido MCV (RBC) [Entitic vol] 92.7 fL Normal 80.0-94.[address] [facility] Comment on above: Performed By: #### C BC #### [facility] [address] [place] [address] Dr. Rachel Pulido MONO # 1.0 103/ul Critically high 0.3-0.8 [facility] Comment on above: Performed By: #### C BC #### [facility] [address] [place] [address] Dr. Rachel Pulido Monocytes/100 WBC (Bld) 9.6 % Normal 1.7-12.[address] [facility] Comment on above: Performed By: #### C BC #### [facility] [address] [place] [address] Dr. Rachel Pulido NEUT # 7.1 103/ul Critically high 1.4-6.5 [facility] Comment on above: Performed By: #### C BC #### [facility] [address] [place] [address] Dr. Rachel Pulido Neutrophils/100 WBC (Bld) 68.6 % Normal 43.0-75.0 [facility] Comment on above: Performed By: #### C BC #### [facility] [address] [address] [address] Rachel Pulido Platelet mean volume (Bld) [Entitic vol] 9.8 fL Normal 9.5-13.[address] [facility] Comment on above: Performed By: #### C BC #### [facility] [address] [address] [address] Rachel Pulido PLT 263 103/ul Normal 150-450 [facility] Comment on above: Performed By: #### C BC #### [facility] [address] [address] [address] Rachel Pulido RBC 4.90 106/ul Normal 4.70-6.10 [facility] Comment on above: Performed By: #### C BC #### [facility] [address] [place] [address] Dr. Rachel Pulido WBC 10.4 103/ul Normal 4.0-11.0 [facility] Comment on above: Performed By: #### C BC #### [facility] [address] [place] [address] ABD/PELVIS WO CONon [...] DELFINO CAMULISES Date: 2022-09-13 11:34 Normal [facility] ER URINE PROFILEon 3 Bilirubin Ql (U) Negative Normal NEGATIVE [facility] Comment on above: Performed By: #### E RUR #### [facility] [address] [place] [address] Dr. Rachel Pulido Clarity (U) CLEAR Normal CLEAR [facility] Comment on above: Performed By: #### E RUR #### [facility] [address] [place] [address] Dr. Rachel Pulido Color (U) LT. YELLOW Normal YELLOW [facility] Comment on above: Performed By: #### E RUR #### [facility] [address] [place] [address] Dr. Rachel PICKARD A micrscopic examination will be performed if indicated. Normal [facility] Comment on above: Performed By: #### E RUR #### [facility] [address] [place] [address] Dr. Rachel Pulido Glucose Ql (U) Negative Normal NEGATIVE [facility] Comment on above: Performed By: #### E RUR #### [facility] [address] [address] [address] Rachel Pulido Hemoglobin Ql (U) Negative Normal NEGATIVE [facility] Comment on above: Performed By: #### E RUR #### [facility] [address] [address] [address] Rachel Pulido Ketones Ql (U) Negative Normal NEGATIVE [facility] Comment on above: Performed By: #### E RUR #### [facility] [address] [place] [address] Dr. Rachel Pulido LEUKOCYTES Negative Normal NEGATIVE [facility] Comment on above: Performed By: #### E RUR #### [facility] [address] [place] [address] Dr. Rachel Pulido Nitrite Ql (U) Negative Normal NEGATIVE [facility] Comment on above: Performed By: #### E RUR #### [facility] [address] [place] [address] Dr. Rachel Pulido pH (U) 5.5 [pH] Normal 5-[address] [facility] Comment on above: Performed By: #### E RUR #### [facility] [address] [place] [address] Dr. Rachel Pulido SPEC GRAVITY >=1.030 Abnormal 1.005-<=1.025 [facility] Comment on above: Performed By: #### E RUR #### [facility] [address] [place] [address] Dr. Rachel Pulido UA PROTEIN Negative Normal NEGATIVE/ TRACE [facility] Comment on above: Performed By: #### E RUR #### [facility] [address] [place] [address] Dr. Rachel Pulido UR MICRO IND NOT INDICATED Normal [facility] Comment on above: Performed By: #### E RUR #### [facility] [address] [place] [address] Dr. Rachel Pulido Urobilinogen Qn (U) 0.2 {Angella'U}/dL Normal 0.2 - 1. [address] [facility] Comment on above: Performed By: #### E RUR #### [facility] [address] [place] [address] Dr. Rachel Pulido PROF 14(COMP METB)on 09-13- 023 Albumin [Mass/Vol] 3.9 g/dL Normal 3.4-5.0 [facility] Comment on above: Performed By: #### C MP #### [facility] [address] [place] [address] Dr. Rachel Pulido Albumin/Globulin [Mass ratio] 1.1 {ratio} Normal [facility] Comment on above: Performed By: #### C MP #### [facility] [address] [place] [address] Dr. Rachel Pulido ALP [Catalytic activity/Vol] 110 U/L Normal 46-[address] [facility] Comment on above: Performed By: #### C MP #### [facility] [address] [place] [address] Dr. Rachel Pulido ALT [Catalytic activity/Vol] 20 U/L Normal 16-[address] [facility] Comment on above: Performed By: #### C MP #### [facility] [address] [place] [address] Dr. Rachel Pulido Anion gap [Moles/Vol] 8.9 mmol/L Normal [facility] Comment on above: Performed By: #### C MP #### [facility] [address] [place] [address] Dr. Rachel Pulido AST [Catalytic activity/Vol] 16 U/L Normal 15-[address] [facility] Comment on above: Performed By: #### C MP #### [facility] [address] [place] [address] Dr. Rachel Pulido Bilirubin [Mass/Vol] 0.2 mg/dL Normal 0.2-1.[address] [facility] Comment on above: Performed By: #### C MP #### [facility] [address] [place] [address] Dr. Rachel Pulido Calcium [Mass/Vol] 9.3 mg/dL Normal 8.5-10.1 [facility] Comment on above: Performed By: #### C MP #### [facility] [address] [place] [address] Dr. Rachel Pulido Chloride [Moles/Vol] 106 mmol/L Normal 98-107 [facility] Comment on above: Performed By: #### C MP #### [facility] [address] [place] [address] Dr. Rachel Pulido CO2 [Moles/Vol] 32.0 mmol/L Normal 21.0-32.[address] [facility] Comment on above: Performed By: #### C MP #### [facility] [address] [place] [address] Dr. Rachel Pulido Creatinine [Mass/Vol] 0.80 mg/dL Normal 0.70-1.[address] [facility] Comment on above: Performed By: #### C MP #### [facility] [address] [address] [address] Rachel Pulido EGFR-AF [place] >60 Normal >=60 [facility] Comment on above: Performed By: #### C MP #### [facility] [address] [address] [address] Rachel Pulido EGFR-NON AF [place] >60 Normal >=[address] [facility] Comment on above: Performed By: #### C MP #### [facility] [address] [address] [address] Rachel Pulido Globulin (S) [Mass/Vol] 3.7 g/dL Normal [facility] Comment on above: Performed By: #### C MP #### [facility] [address] [place] [address] Dr. Rachel Pulido Glucose [Mass/Vol] 92 mg/dL Normal 74-106 [facility] Comment on above: Performed By: #### C MP #### [facility] [address] [address] [address] Rachel Pulido Potassium [Moles/Vol] 4.9 mmol/L Normal 3.5-5.[address] [facility] Comment on above: Performed By: #### C MP #### [facility] [address] [place] [address] Dr. Rachel Pulido Protein [Mass/Vol] 7.6 g/dL Normal 6.4-8.2 [facility] Comment on above: Performed By: #### C MP #### [facility] [address] [address] [address] Rachel Pulido Sodium [Moles/Vol] 142 mmol/L Normal 136-145 [facility] Comment on above: Performed By: #### C MP #### [facility] [address] [address] [address] Rachel Pulido Urea nitrogen [Mass/Vol] 15.0 mg/dL Normal 7.0-18.[address] [facility] Comment on above: Performed By: #### C MP #### [facility] [address], [place] [address] Dr. Rachel Pulido Urea nitrogen/Creatinine [Mass ratio] 18.8 mg/mg Normal [facility] Comment on above: Performed By: #### C MP #### [facility] [address], [place] [address] Dr. Rachel Pulido THC, Ur Confirmationon 06-19 THC Confirm 34 ng/mL Normal [facility] Comment on above: Result Comment: (NOT E) INTERPRETIVE INFORMATION: THC Metabolite, Urine, Quantitative Methodology: Quantitative Liquid Chromatography-Tandem Mass Spectrometry Positive cutoff: 15 ng/mL For medical purposes only; not valid for forensic use. The drug analyte detected in this assay, 9-carboxy THC, is a metabolite of gyasz-3-uixqerwbcszuutnhfqcz (THC). Detection of 9-carboxy THC suggests use [...] developed and its performance characteristics determined by [facility]. It has not been cleared or approved by the [place] Food and Drug Administration. This test was performed in a CLIA certified laboratory and is intended for clinical purposes. Performed By: [facility] [address] [place] [address] Electric Wirer: Dhruv Hu MD, PhD Performed By: #### A THCCO, ADAU9U #### [employer] [facility] [address] [place] [address] Tie Up Worker: Wali Beaulieu MD #### ABRAHAM #### [facility] [address] [place] [address] Tie Up Worker: Michael Deng MD #### SHRUTHI LONGORIA #### [facility] [address] [address] Tie Up Worker: Deangelo Neal MD #### COVID #### [address] [address] Tie Up Worker: Michael Deng MD [facility] [address] [place] [address] [place] [address] Tie Up Worker: Deangelo Neal MD Drugs of Abuse,Urineon 06-18 Alcohol, Ur Negative Normal Cutoff 40 [facility] Comment on above: Performed By: #### A THCCO, ADAU9U #### [facility] [address] [place] [address] Tie Up Worker: Wali Beaulieu MD #### URURI #### [address] [address] Tie Up Worker: Michael Deng MD #### FLUABA, SHRUTHI #### [address] [place], [place] [phone] Tie Up Worker: Deangelo Neal MD #### COVID #### [address] [address] Tie Up Worker: Michael Deng MD [facility] [address] [place] [address] [place] [address] Tie Up Worker: Deangelo Neal MD Amphetamine, Ur Negative Normal Cutoff 300 [facility] Comment on above: Performed By: #### A THCCO, ADAU9U #### [facility] [address] [place] [address] Tie Up Worker: Wali Beaulieu MD #### URURI #### [address] [address] Tie Up Worker: Michael Deng MD #### FLUABA, SHRUTHI #### [facility] [address] [place], [place] [phone] Tie Up Worker: Deangelo Neal MD #### COVID #### [address] [address] Tie Up Worker: Michael Deng MD [facility] [address] [place] [address] Dr. [place], [place] [id number] Tie Up Worker: Deangelo Neal MD Barbiturates, Ur Negative Normal Cutoff 200 [facility] Comment on above: Performed By: #### A THCCO, ADAU9U #### [facility] [address] [place] [address] Tie Up Worker: Wali Beaulieu MD #### URURI #### [address] [address] Tie Up Worker: Michael Deng MD #### FLUABA, SHRUTHI #### [address] [place] [address] Tie Up Worker: Deangelo Neal MD #### COVID #### [address] [address] Tie Up Worker: Michael Deng MD [address] [place], [place] [id number] Tie Up Worker: Deangelo Neal MD Benzodiazepines, Ur Negative Normal Cutoff 200 [facility] Comment on above: Performed By: #### A THCCO, ADAU9U #### [facility] [address] [place] [address] Tie Up Worker: Wali Beaulieu MD #### URURI #### [address] [address] Tie Up Worker: Michael Deng MD #### FLUABA, SHRUTHI #### [address] [place], [place] [id number] Tie Up Worker: Deangelo Neal MD #### COVID #### [address] [address] Tie Up Worker: Michael Deng MD [address] [place] [address] Tie Up Worker: Deangelo Neal MD Cocaine, Ur Negative Normal Cutoff 150 [facility] Comment on above: Performed By: #### A THCCO, ADAU9U #### [facility] [address] [place] [address] Tie Up Worker: Wali Beaulieu MD #### URURI #### [facility] [address] [place], [place] [id number] Tie Up Worker: Michael Deng MD #### FLUABA, SHRUTHI #### [facility] [address] [address] Tie Up Worker: Deangelo Neal MD #### COVID #### [facility] [address] [place] [address] Tie Up Worker: Michael Deng MD [facility] [address] [place] [address] [place] [address] Tie Up Worker: Deangelo Neal MD Comments See Note Normal [facility] Comment on above: Result Comment: (NOT E) [...] opioid testing can be ordered. Refer to [facility] for test information. Performed by [facility], [address] [place] [id number] [email or web address], Dhruv Hu MD, PHD, Lab. Director Performed By: #### A THCCO, ADAU9U #### [facility] [address] [place] [id number] Tie Up Worker: Wali Beaulieu MD #### URURI #### [address] [address] Tie Up Worker: Michael Deng MD #### FLUABA, SHRUTHI #### [address] [place] [address] Tie Up Worker: Deangelo Neal MD #### COVID #### [address] [address] Tie Up Worker: Michael Deng MD [address] [place] [address] Tie Up Worker: Deangelo Neal MD Creatinine, Ur <20.0 Low 20.0-400.0 [facility] Comment on above: Result Comment: (NOT E) Creatinine <20 mg/dL is consistent with a dilute urine specimen. Recollection to obtain a more concentrated specimen, such as a first morning void, may be considered if unexpected negative urine drug screening results were obtained. Performed By: #### A THCCO, ADAU9U #### [facility] [address] [place] [address] Tie Up Worker: Wali Beaulieu MD #### URURI #### [address] [address] Tie Up Worker: Michael Deng MD #### FLUABA, SHRUTHI #### [address] [place], [place] [phone] Tie Up Worker: Deangelo Neal MD #### COVID #### [address] [address] Tie Up Worker: Michael Deng MD [address] [place], [place] [phone] Tie Up Worker: Deangelo Neal MD Marijuana, Ur Positive Normal Cutoff 20 [facility] Comment on above: Result Comment: (NOT E) If the screen is positive, then confirmation testing by mass spectrometry will be added. Additional charges will apply. Performed By: #### A THCCO, ADAU9U #### [facility] [address] [place] [address] Tie Up Worker: Wali Beaulieu MD #### URURI #### [address] [address] Tie Up Worker: Michael Deng MD #### FLUKUSUM, SHRUTHI #### [address] [place], [place] [phone] Tie Up Worker: Deangelo Neal MD #### COVID #### [address] [address] Tie Up Worker: Michael Deng MD [address] [place], [place] [phone] Tie Up Worker: Deangelo Neal MD Methadone, Ur Negative Normal Cutoff 150 [facility] Comment on above: Performed By: #### A THCCO, ADAU9U #### [facility] [address] [place] [address] Tie Up Worker: Wali Beaulieu MD #### URURI #### [address] [address] Tie Up Worker: Michael Deng MD #### FLUABA, SHRUTHI #### [address] [place], [place] [phone] Tie Up Worker: Deangelo Neal MD #### COVID #### [address] [address] Tie Up Worker: Michael Deng MD [facility] [address] [place] [address] Dr. [place], [place] [phone] Tie Up Worker: Deangelo Neal MD Opiates, Ur Negative Normal Cutoff 300 [facility] Comment on above: Performed By: #### A THCCO, ADAU9U #### [facility] [address] [place] [address] Tie Up Worker: Wali Beaulieu MD #### URURI #### [address] [address] Tie Up Worker: Michael Deng MD #### FLUABA, SHRUTHI #### [facility] [address] [place] [address] Dr. [place], [place] [phone] Tie Up Worker: Deangelo Neal MD #### COVID #### [address] [address] Tie Up Worker: Michael Deng MD [facility] [address] [place] [address] Dr. [place], [place] [phone] Tie Up Worker: Deangelo Neal MD Phencyclidine, Ur Negative Normal Cutoff 25 [facility] Comment on above: Performed By: #### A THCCO, ADAU9U #### [facility] [address] [place] [address] Tie Up Worker: Wali Beaulieu MD #### URURI #### [address] [address] Tie Up Worker: Michael Deng MD #### FLUABA, SHRUTHI #### [facility] [address] [place] [address] Dr. [place], [place] [phone] Tie Up Worker: Deangelo Neal MD #### COVID #### [address] [address] Tie Up Worker: Michael Deng MD [facility] [address] [place], [place] [phone] Tie Up Worker: Deangelo Neal MD Propoxyphene, Ur Negative Normal Cutoff 300 [facility] Comment on above: Performed By: #### A THCCO, ADAU9U #### [facility] [address] [place] [address] Tie Up Worker: Wali Beaulieu MD #### URURI #### [facility] [address] [place], [place] [id number] Tie Up Worker: Michael Deng MD #### FLUABA, SHRUTHI #### [facility] [address] [place], [place] [phone] Tie Up Worker: Deangelo Neal MD #### COVID #### [facility] [address] [place] [address] Tie Up Worker: Michael Deng MD [facility] [address] [place], [place] [phone] Tie Up Worker: Deangelo Neal MD [id number] 06-17-2022 SARS-CoV-2 (COVID-19) RNA HENOK+probe Ql (Unsp spec) Not detected Normal [facility] Comment on above: Result Comment: The specimen is NEGATIVE for SARS-CoV-2, the novel coronavirus associated with COVID-19. A negative result does not rule out COVID-19. This test has been authorized by the FDA under an Emergency Use Authorization (EUA) for use by authorized laboratories. BD SARS-CoV-2 Reagents for BD Spectraseis System are designed to detect the virus that causes COVID-19 in patients with signs and symptoms of infection who are suspected of COVID-19. Fact sheet for Healthcare Providers: https://www.fda.gov/media/265918/download Fact sheet for Patients: https://www.fda.gov/media/983990/download METHODOLOGY: RT-PCR Performed By: #### A TIFFANY, ADAU9U #### [facility] [address] [place] [address] Tie Up Worker: Wali Beaulieu MD #### URURI #### [address] [address] Tie Up Worker: Michael Deng MD #### FLUKUSUM, SHRUTHI #### [address] [place] [id number] Tie Up Worker: Deangelo Neal MD #### COVID #### [address] [address] Tie Up Worker: Michael Deng MD [address] [place] [id number] Tie Up Worker: Deangelo Neal MD SARS-CoV-2 (COVID-19) RNA HENOK+probe Ql (Unsp spec) [facility] Comment on above: Performed By: #### A THCCO, ADAU9U #### [facility] [address] [place] [address] Tie Up Worker: Wali Beaulieu MD #### URURI #### [address] [address] Tie Up Worker: Michael Deng MD #### VON SHRUTHI #### [address] [place] [phone] Tie Up Worker: Deangelo Neal MD #### COVID #### [address] [address] Tie Up Worker: Michael Deng MD [address] [place] [address] Tie Up Worker: Deangelo Neal MD Uric Acid, Random Uron 06-17 Uric Acid conc. <4.0 [facility] Comment on above: Result Comment: No n ormal range established. Performed By: #### A THCCO, ADAU9U #### [facility] [address] [place] [address] Tie Up Worker: Wali Beaulieu MD #### URURI #### [address] [address] Tie Up Worker: Michael Deng MD #### FLUABA, SHRUTHI #### [address] [place], [place] [phone] Tie Up Worker: Deangelo Neal MD #### COVID #### [address] [address] Tie Up Worker: Michael Deng MD [address] [place] [phone] Tie Up Worker: Deangelo Neal MD Drug Scr, Abuse, Uron 2022 Amphetamine(s),Ur Negative Normal NEG [facility] Comment on above: Result Comment: (Positive cutoff 1000 ng/mL) Performed By: #### A THCCO, ADAU9U #### [facility] [address] [place] [address] Tie Up Worker: Wali Beaulieu MD #### URURI #### [address] [address] Tie Up Worker: Michael Deng MD #### FLUABA, SHRUTHI #### [address] [place] [address] Tie Up Worker: Deangelo Neal MD #### COVID #### [address] [address] Tie Up Worker: Michael Deng MD [address] [place] [address] Tie Up Worker: Denagelo Neal MD Barbiturate(s),Ur Negative Normal NEG [facility] Comment on above: Result Comment: (Positive cutoff 200 ng/mL) Performed By: #### A THCCO, ADAU9U #### [facility] [address] [place] [address] Tie Up Worker: Wali Beaulieu MD #### URURI #### [address] [address] Tie Up Worker: Michael Deng MD #### FLUABA, SHRUTHI #### [address] [place] [address] Tie Up Worker: Deangelo Neal MD #### COVID #### [address] [address] Tie Up Worker: Michael Deng MD [address] [place] [address] Tie Up Worker: Deangelo Neal MD Benzodiazepine(s) Negative Normal NEG [facility] Comment on above: Result Comment: (Positive cutoff 200 ng/mL) Performed By: #### A THCCO, ADAU9U #### [facility] [address] [place] [address] Tie Up Worker: Wali Beaulieu MD #### URURI #### [address] [address] Tie Up Worker: Michael Deng MD #### FLUKUSUM, SHRUTHI #### [address] [place], [place] [phone] Tie Up Worker: Deangelo Neal MD #### COVID #### [address] [address] Tie Up Worker: Michael Deng MD [address] [place], [place] [phone] Tie Up Worker: Deangelo Neal MD Buprenorphrine, Ur Negative Normal NEG [facility] Comment on above: Result Comment: (Positive cutoff 5 ng/ml) Performed By: #### A THCCO, ADAU9U #### [facility] [address] [place] [address] Tie Up Worker: Wali Beaulieu MD #### URURI #### [address] [address] Tie Up Worker: Michael Deng MD #### FLUABA, SHRUTHI #### [address] [place], [place] 5655283 Tie Up Worker: Deangelo Neal MD #### COVID #### [address] [address] Tie Up Worker: Michael Deng MD [address] [place], [place] [phone] Tie Up Worker: Deangelo Neal MD Cannabinoid(s),Ur Positive Abnormal NEG [facility] Comment on above: Result Comment: (Positive cutoff 50 ng/mL) Performed By: #### A THCCO, ADAU9U #### [facility] [address] [place] [address] Tie Up Worker: Wali Beaulieu MD #### URURI #### [address] [address] Tie Up Worker: Michael Deng MD #### FLUKUSUM, SHRUTHI #### [address] [place], [place] [phone] Tie Up Worker: Deangelo Neal MD #### COVID #### [address] [address] Tie Up Worker: Michael Deng MD [address] [place] [address] Tie Up Worker: Deangelo Neal MD Cocaine Metabolite Negative Normal NEG [facility] Comment on above: Result Comment: (Positive cutoff 300 ng/mL) Performed By: #### A THCCO, ADAU9U #### [facility] [address] [place] [address] Tie Up Worker: Wali Beaulieu MD #### URURI #### [facility] [address] [place] [address] Tie Up Worker: Michael Deng MD #### FLUABA, SHRUTHI #### [facility] [address] [place] [address] Dr. [place], [place] [phone] Tie Up Worker: Deangelo Neal MD #### COVID #### [address] [address] Tie Up Worker: Michael Deng MD [address] [place], [place] [phone] Tie Up Worker: Deangelo Neal MD Fentanyl, Urine Negative Normal NEG [facility] Comment on above: Result Comment: (Positive cutoff 5 ng/ml) Performed By: #### A THCCO, ADAU9U #### [facility] [address] [place] [address] Tie Up Worker: Wali Beaulieu MD #### URURI #### [address] [address] Tie Up Worker: Michael Deng MD #### FLUKUSUM, SHRUTHI #### [address] [place], [place] [phone] Tie Up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
--- NOTE | 2025-02-01 14:47 | XR_ITS ---
The [address] [address] Patient Name: KRISH CUEVAS MRN: [id number] date: 1960 Sex: M Assigned Patient Location: ER Current Patient Location: ER Accession/Order Number: [id number] Exam Date: 02/01/2025 15:15 Report Date: 02/01/2025 15:49 At the request of: INGRIS ABRAMS Procedure: XR chest 1V XR chest 1V 02/01/2025 3:30 PM SIGNS AND SYMPTOMS: ^Purulent sputum, SOB ^Y PROTOCOL: Frontal radiograph of the chest COMPARISON: 08/02/2023 FINDINGS: The trachea is midline. The heart and mediastinal structures are within normal limits. The lung parenchyma is clear. The bony thorax is intact. Degenerative changes are noted in the thoracic spine. XR/XR chest 1V IMPRESSION: No acute cardiopulmonary pathology. Impression dictated by: Fam Vogt M.D. 02/01/2025 3:49 PM Dictation Location: [place] [address] Electronically authenticated by: [id number] Y Date: 02/01/2025 15:49
[2025-02-01 15:11] LABS: Hematocrit 43.5 % (42.0-54.0); Hemoglobin 14.6 g/dL (14.0-18.0); Immature Granulocytes Abs Auto 0.07 10^3/uL (0.00-0.03); Immature Granulocytes Pct Auto 0.9 % (0.0-0.5); Lymphocytes Absolute Auto 1.8 10^3/uL (1.2-3.8); Mean Corpuscular HGB Conc 33.6 g/dL (29.9-35.2); Mean Corpuscular Hemoglobin 30.5 pg (25.9-34.0); Mean Corpuscular Volume 91.0 fL (80.0-94.0); Platelet Count 245 10^3/uL (150-450); Red Blood Count 4.78 10^6/uL (4.70-6.10); White Blood Count 8.0 10^3/uL (4.0-11.0)
--- NOTE | 2025-02-01 15:11 | ED_ITS ---
HPI HPI - General Adult General Chief complaint: Neck Pain/Injury Stated complaint: NECK PAIN Time Seen by Provider: 02/01/25 14:34 Source: patient Mode of arrival: walk-in History of Present Illness HPI narrative: Patient is a 64-year-old male with a past medical history of COPD that presents with complaints of left-sided posterior neck pain that he describes as a lump . He states it has been causing him to cough up a sputum that has yellow- greenish. The neck pain has been present for about 3 weeks. Initially he denied any trauma or falls but states that he did have a fall where he hurt his left elbow over 3 weeks ago. He thought that he got bit by a bug that has been causing the pain and the lump he was feeling. He does have shortness of breath at baseline and states that he has been spitting up a yellowish-greenish sputum in the past week. He states he usually gets antibiotics for this and steroids when this happens. He states 1 day he did feel feverish. He denies any chest or abdominal pain. He does not have a current primary care provider. He does however have inhalers at home for his COPD. Related Data Home Medications ?Medication ?Instructions ?Recorded ?Confirmed albuterol sulfate 90 mcg/actuation 1 puff inhalation Q 6H PRN 08/02/23 04/12/24 aerosol inhaler shortness of breath or wheez ing budesonide-formoterol HFA 80 1 inh inhalation BID 07/1504/12/24 mcg-4.5 mcg/actuation aerosol inhaler (Symbicort) sildenafil 100 mg tablet 100 mg PO Q24H PRN sexual ac tivity 04/12/24 04/12/24 Previous Rx's ?Medication ?Instructions ?Recorded albuterol sulfate 90 mcg/actuation 2 inh inhalation Q6 H PRN shortness 03/11/23 breath activated powder inhaler of breath or wheezing #1 ea benzonatate 100 mg capsule 200 mg (2 x 100 mg) PO TID PRN 08/02/23 cough #20 caps cephalexin 500 mg capsule 500 mg PO Q8H 10 days #30 ca ps 04/12/24 hydroxyzine HCl 25 mg tablet 25 mg PO Q6H PRN itching #20 tabs 04/12/24 prednisone 20 mg tablet See Rx Instructions .Route 1 06/12/23 .COMPLEX #12 tabs prednisone 50 mg tablet 50 mg PO DAILY 5 days #5 tab s 02/01/25 Allergies Allergy/AdvReac Type Severity Reaction Status Date / Time No Known Drug Allergies Allergy Verified 01/25/24 17:16 Opioid HPI Opioid Management Most Recent Opioid Data: Last Pain Scale 4 01/25/24, 17:26 Review of Systems ROS Status of ROS 10 or more systems reviewed and unremark able except as noted in history and below PFSH PFS Social History Little interest or pleasure in doing things: not at all Feeling down, depressed, or hopeless: not at all Exam Narrative Exam Narrative: General: No distress, age-appropriate Skin: Warm, dry, no pallor. No rash. Head: Normocephalic, atraumatic. Neck: Supple, left-sided paraspinal tenderness, no midline cervical tenderness. No abscess or skin changes consistent with bug bite. Eye: Pupils are equal, round and EOMI. No scleral icterus. Ears, Nose, Mouth, and Throat: No nasal mucosal hypertrophy. Oral mucosa is moist, no posterior oropharynx erythema, uvula is mid-line Cardiovascular: Regular Rate and Rhythm without murmur, gallop or rub. Respiratory: No accessory muscle use or respiratory distress. Lungs are clear to auscultation, no wheezing, rales or rhonchi Chest Wall: no tenderness Back: No midline thoracic or lumbar vertebral tenderness. Musculoskeletal: Full ROM of all extremities, no calf or popliteal tenderness GI: Abdomen is soft, non-distended, non tender to palpation. No masses appreciated. No rebound, guarding, or rigidity noted. Neurological: A&O x4. No cranial nerve dysfunction observed. No truncal ataxia. Moves all extremities. Sensation intact. Psychiatric: Cooperative and interactive. Normal mood and affect. Constitutional Vital Signs, click to edit/add: Last Vital Signs Temp 98.1 F 02/01/25 14:21 Pulse 93 H 02/01/25 16:06 Resp 18 02/01/25 16:06 BP 140/86 02/01/25 16:09 Pulse Ox 95 02/01/25 16:06 O2 Del Method Room Air 02/01/25 14:21 Documenting provider has reviewed patient's vital signs: yes Course Vital Signs Vital signs: Vital Signs Temperature 98.1 F 02/01/25 14:21 Pulse Rate 110 H 02/01/25 14:21 Respiratory Rate 18 02/01/25 14:21 Blood Pressure 147/105 H 02/01/25 14:21 Pulse Oximetry 96 02/01/25 14:21 Oxygen Delivery Method Room Air 02/01/25 14:21 Temperature 98.1 F 02/01/25 14:21 Pulse Rate 93 H 02/01/25 16:06 Respiratory Rate 18 02/01/25 16:06 Blood Pressure 140/86 02/01/25 16:09 Pulse Oximetry 95 02/01/25 16:06 Oxygen Delivery Method Room Air 02/01/25 14:21 Medical Decision Making MDM Narrative Medical decision making narrative: This is a 64-year-old male with known COPD that presents with 1 week of yellow/greenish sputum but denies cough. He is also concerned that there has been a lump that he can feel under his skin that is painful. He has noticed this for the past 3 weeks and notes that it is hard to turn his head. He denies any upper extremity weakness, numbness, or tingling. He did have a fall a month or so ago and hurt the left side of his body. On exam patient is in no distress sitting up on the ED cart. Vitals are stable. Patient is afebrile. There is no palpable lump that would correlate with a bug bite or abscess. No skin changes over the area he is indicating hurts. His pain is stemming from his cervical muscles. Lungs are clear to auscultation bilaterally, no wheezing on inspiration or expiration. No rales or rhonchi. Chest x-ray, CBC, and BMP ordered as he is complaining that his sputum is becoming increasingly thicker and a greenish-yellow. COVID?19 test ordered. Labs: CBC: wnl BMP: wnl COVID-19: Negative For the patient's persistent neck pain after a fall over a month ago that appears to be muscular in nature I am going to give him a steroid burst, Prednisone 50 mg x 5 days. I did consider a CT scan but was able to clear his cervical spine per Nexus criteria. He had 5/5 bilateral upper extremity str ength with no neurological deficits or complaints. For his sputum complaint I discussed with him that antibiotics are not indicated at this time. He can return to the emergency department if his baseline shortness of breath increases, the sputum becomes malodorous/changes color, or he develops a fever. He was also cautioned to return for any new or worsening symptoms. Patient was discharged with a steroid burst with instructions to follow-up with his primary care provider in a week. Differential Diagnosis Differential Diagnosis: Viral syndrome, COVID-19 Lab Data Lab results reviewed: Yes I reviewed the patient's lab results Labs: Lab Results 02/01/25 02/01/25 Range/Units 14:57 15:01 WBC 8.0 (4.0-11.0) 10^3/uL RBC 4.78 (4.70-6.10) 10^6/uL Hgb 14.6 (14.0-18.0) g/dL Hct 43.5 (42.0-54.0) % MCV 91.0 (80.0-94.0) fL MCH 30.5 (25.9-34.0) pg MCHC 33.6 (29.9-35.2) g/dL RDW 13.1 (11.0-15.0) % Plt Count 245 (150-450) 10^3/uL MPV 9.8 (9.5-13.5) fL Neut % (Auto) 63.6 (43.0-75.0) % Lymph % (Auto) 22.8 (20.5-60.0) % Citrus % (Auto) 10.7 (1.7-12.0) % Eos % (Auto) 1.4 (0.9-7.0) % Baso % (Auto) 0.6 (0.2-2.0) % Neut # (Auto) 5.1 (1.4-6.5) 10^3/uL Lymph # (Auto) 1.8 (1.2-3.8) 10^3/uL [place] # (Auto) 0.9 H (0.3-0.8) 10^3/uL Eos # (Auto) 0.1 (0.0-0.7) 10^3/uL Baso # (Auto) 0.1 (0.0-0.1) 10^3/uL Abs Immat Gran (auto) 0.07 H (0.00-0.03) 10^3/uL Imm/Tot Granulo (auto) 0.9 H (0.0-0.5) % Sodium 143 (136-145) mmol/L Potassium 4.5 (3.5-5.1) mmol/L Chloride 105 (98-107) mmol/L Carbon Dioxide 29.5 (21.0-32.0) mmol/L Anion Gap 13.0 BUN 17.0 (7.0-18.0) mg/dL Creatinine 0.72 (0.70-1.30) mg/dL Est GFR ( Amer) >60 (>=60 mL/min/1.73m^2) Est GFR (Non-Af Amer) >60 (>=60 mL/min/1.73m^2) BUN/Creatinine Ratio 23.6 Glucose 65 L (74-106) mg/dL Calcium 9.8 (8.5-10.1) mg/dL SARS-CoV-2 Ag (CV2AG) Negative (NEGATIVE) Imaging Data Chest x-ray: Attestation: I have reviewed the pertinent imaging results. Radiologist's impression: ITS Impressions Chest X-Ray 02/01/25 14:47 IMPRESSION: No acute cardiopulmonary pathology. Impression dictated by: Fam Vogt M.D. 02/01/2025 3:49 PM Dictation Location: [place] [address] Electronically authenticated by: [id number] Y Date: 02/01/2025 15:49 Discharge Plan Discharge Chief Complaint: Neck Pain/Injury Clinical Impression: Strain of neck muscle, COPD (chronic obstructive pulmonary disease) Patient Disposition: Home, Self-Care Time of Disposition Decision: 16:25 Condition: Good Mode of Transportation: Private Vehicle Prescriptions / Home Meds: New prednisone 50 mg tablet 50 mg PO DAILY 5 Days Qty: 5 0RF No Action albuterol sulfate 90 mcg/actuation aerosol powdr breath activated 2 inh inhalation Q6H PRN (Reason: shortness of breath or wheezing) Qty: 1 0RF budesonide-formoterol [Symbicort] 80-4.5 mcg/actuation HFA aerosol inhaler 1 inh inhalation BID albuterol sulfate 90 mcg/actuation HFA aerosol inhaler 1 puff INHALATION Q6H PRN (Reason: shortness of breath or wheezing) benzonatate 100 mg capsule 200 mg PO TID PRN (Reason: cough) Qty: 20 0RF sildenafil 100 mg tablet 100 mg PO Q24H PRN (Reason: sexual activity) prednisone 20 mg tablet See Rx Instructions .ROUTE .COMPLEX Qty: 12 0RF Rx Instructions: 3 tabs daily for 2 days, then 2 tabs daily for 2 days, then 1 tab daily for 2 days cephalexin 500 mg capsule 500 mg PO Q8H 10 Days Qty: 30 0RF hydroxyzine HCl 25 mg tablet 25 mg PO Q6H PRN (Reason: itching) Qty: 20 0RF Print Language: Indonesian Instructions: Cervical Strain (DC), COPD (Chronic Obstructive Pulmonary Disease) (ED) Additional Instructions: Physicians accepting new pt list provided, Return to ER for any problems or concerns Referrals: Physician,Non-Staff, MD [Primary Care Provider] - 1 week Discharge Date/Time: 02/01/25 16:38
[2025-02-01 15:20] LABS: SARS-CoV-2 Ag NEGATIVE (NEGATIVE)
[2025-02-01 15:26] LABS: Anion Gap 13.0; Blood Urea Nitrogen 17.0 mg/dL (7.0-18.0); Calcium 9.8 mg/dL (8.5-10.1); Carbon Dioxide 29.5 mmol/L (21.0-32.0); Chloride 105 mmol/L (98-107); Estimated GFR (African America >60 (>=60 mL/min/1.73m^2); Estimated GFR (Non-African Ame >60 (>=60 mL/min/1.73m^2); Glucose 65 mg/dL (74-106); Potassium 4.5 mmol/L (3.5-5.1); Sodium 143 mmol/L (136-145)
[2025-02-01 16:06] VITALS: BP 173/106; PULSE 93; O2SAT 95
[2025-02-01 16:09] VITALS: BP 140/86
== END 2025-02-01 16:38 | disposition home or self-care (01) ==
PROVIDERS: Physician Assistant; Emergency Provider Emergency Medicine
DX: S16.1XXA Strain of muscle, fascia and tendon at neck level, initial encounter (principal); W19.XXXA Unspecified fall, initial encounter; J44.9 Chronic obstructive pulmonary disease, unspecified
CPT/HCPCS: 36415; 71045; 80048; 85025; 87811; 99285

== ENCOUNTER 2025-05-01 14:45 | Emergency (ER) | payer MEDICARE, SELFPAY ==
[2025-05-01 14:51] VITALS: BP 169/108; PULSE 94; TEMP 36.4; O2SAT 94; BMI 25.7
--- NOTE | 2025-05-01 15:10 | ECG_ITS ---
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
--- NOTE | 2025-05-01 15:11 | XR_ITS ---
The [address] [address] Patient Name: KRISH CUEVAS MRN: [id number] date: 1960 Sex: M Assigned Patient Location: ED.MAIN Current Patient Location: ED.MAIN Accession/Order Number: [id number] Exam Date: 05/01/2025 15:30 Report Date: 05/01/2025 16:45 At the request of: LORE FOWLER MD Procedure: XR chest 1V XR chest 1V 05/01/2025 3:41 PM SIGNS AND SYMPTOMS: Cough, drainage, neck and chest pain PROTOCOL: Frontal radiograph of the chest COMPARISON: 02/01/2025 FINDINGS: The trachea is midline. The heart and mediastinal structures are within normal limits. There is linear scarring at the left lung base which is unchanged. The bony thorax is intact. Degenerative changes are noted in the shoulders and thoracic spine. XR/XR chest 1V IMPRESSION: No acute cardiopulmonary pathology. Impression dictated by: Fam Vogt M.D. 05/01/2025 4:45 PM Dictation Location: [place] [address] Electronically authenticated by: [id number] Y Date: 05/01/2025 16:45
[2025-05-01 15:43] LABS: Hematocrit 43.6 % (42.0-54.0); Hemoglobin 14.1 g/dL (14.0-18.0); Immature Granulocytes Abs Auto 0.09 10^3/uL (0.00-0.03); Immature Granulocytes Pct Auto 1.0 % (0.0-0.5); Lymphocytes Absolute Auto 1.4 10^3/uL (1.2-3.8); Mean Corpuscular HGB Conc 32.3 g/dL (29.9-35.2); Mean Corpuscular Hemoglobin 30.2 pg (25.9-34.0); Mean Corpuscular Volume 93.4 fL (80.0-94.0); Platelet Count 254 10^3/uL (150-450); Red Blood Count 4.67 10^6/uL (4.70-6.10); White Blood Count 8.9 10^3/uL (4.0-11.0)
[2025-05-01 15:56] LABS: INR 0.96; Prothrombin Time 10.1 sec (9.0-11.6)
[2025-05-01 16:02] LABS: Lactate/Lactic Acid 1.0 mmol/L (0.4-2.0)
[2025-05-01 16:08] LABS: Alanine Aminotransferase 23 U/L (16-63); Albumin Globulin Ratio 1.0; Albumin Level 3.5 g/dL (3.4-5.0); Alkaline Phosphatase 99 U/L (46-116); Anion Gap 10.2; Aspartate Amino Transferase 17 U/L (15-37); Blood Urea Nitrogen 15.0 mg/dL (7.0-18.0); Calcium 8.8 mg/dL (8.5-10.1); Carbon Dioxide 27.4 mmol/L (21.0-32.0); Chloride 107 mmol/L (98-107); Estimated GFR (African America >60 (>=60 mL/min/1.73m^2); Estimated GFR (Non-African Ame >60 (>=60 mL/min/1.73m^2); Globulin 3.5 g/dL; Glucose 104 mg/dL (74-106); Potassium 4.6 mmol/L (3.5-5.1); Sodium 140 mmol/L (136-145); Total Protein 7.0 g/dL (6.4-8.2)
--- NOTE | 2025-05-01 16:54 | ED.CHESTPAI1 ---
HPI - Chest Pain General Chief Complaint: Neck Pain/Injury Stated Complaint: NECK PAIN Time Seen by Provider: 05/01/25 15:10 Source: patient Mode of arrival: walk-in Limitations: no limitations History of Present Illness HPI narrative: Patient presenting to us with almost 2 to 3-month history of cough that is productive of greenish sputum, the patient denies any difficulty breathing at the moment but he have that sometimes No nausea no vomiting no other concerns although the patient mentioned that he feels that there is ringing in his left ear and also some neck pain that is nonspecific and not present all the time No chest pain no dizziness no other concerns The patient was evaluated for this almost few months ago with according to him no improvement Related Data Home Medications ?Medication ?Instructions ?Recorded ?Confirmed albuterol sulfate 90 mcg/actuation 1 puff inhalation Q6H PRN 08/02/23 04/12/24 aerosol inhaler shortness of breath or wheezing budesonide-formoterol HFA 80 1 inh inhalation BID 08/02/23 05/01/25 mcg-4.5 mcg/actuation aerosol inhaler (Symbicort) sildenafil 100 mg tablet 100 mg PO Q24H PRN sexual activity 04/12/24 04/12/24 Previous Rx's ?Medication ?Instructions ?Recorded albuterol sulfate 90 mcg/actuation 2 inh inhalation Q6H PRN shortness 03/11/23 breath activated powder inhaler of breath or wheezing #1 ea benzonatate 100 mg capsule 200 mg (2 x 100 mg) PO TID PRN 08/02/23 cough #20 caps cephalexin 500 mg capsule 500 mg PO Q8H 10 days #30 caps 04/12/24 hydroxyzine HCl 25 mg tablet 25 mg PO Q6H PRN itching #20 tabs 04/12/24 prednisone 20 mg tablet See Rx Instructions .Route 04/12/24 .COMPLEX #12 tabs prednisone 50 mg tablet 50 mg PO DAILY 5 days #5 tabs 02/01/25 doxycycline hyclate 100 mg tablet 100 mg PO BID 7 days #14 tabs 05/01/25 Allergies Allergy/AdvReac Type Severity Reaction Status Date / Time No Known Drug Allergies Allergy Verified 05/01/25 14:50 Review of Systems ROS Status of ROS 10 or more systems reviewed and unremarkable except as noted in history and below PFSH PFS Social History Little interest or pleasure in doing things: not at all Feeling down, depressed, or hopeless: not at all Exam Narrative Exam Narrative: Nurses notes and vital signs reviewed and patient is not hypoxic. General: Well-appearing and in no apparent distress. Skin: Warm, dry, no pallor noted. No rash. Head: Normocephalic, atraumatic. Neck: Supple, non-tender. Eye: Pupils are equal, round and EOMI. No scleral icterus. Ears, Nose, Mouth, and Throat: Left ear examination shows that the patient have some serous fluid behind the tympanic membrane right ear examination there was a lot of cerumen Cardiovascular: Regular Rate and Rhythm without murmur, gallop or rub. Respiratory: No accessory muscle use or respiratory distress. Lungs are distant breathing sound but there is no wheezing or crackles Musculoskeletal: normal ROM, no calf or popliteal tenderness, no lower extremity edema/swelling GI: Abdomen is soft, non-distended. Normal bowel sounds. No masses appreciated. No tenderness to palpation. No rebound, guarding, or rigidity noted. Neurological: A&O x4. No cranial nerve dysfunction observed. No truncal ataxia. Moves all extremities. Sensation intact. Psychiatric: Cooperative and interactive. Normal mood and affect. Constitutional Vital Signs, click to edit/add: Last Vital Signs Temp 97.6 F 05/01/25 14:51 Pulse 94 H 05/01/25 14:51 Resp 16 05/01/25 14:51 BP 169/108 H 05/01/25 14:51 Pulse Ox 94 L 05/01/25 14:51 Course Vital Signs Vital signs: Vital Signs Temperature 97.6 F 05/01/25 14:51 Pulse Rate 94 H 05/01/25 14:51 Respiratory Rate 16 05/01/25 14:51 Blood Pressure 169/108 H 05/01/25 14:51 Pulse Oximetry 94 L 05/01/25 14:51 Temperature 97.6 F 05/01/25 14:51 Pulse Rate 94 H 05/01/25 14:51 Respiratory Rate 16 05/01/25 14:51 Blood Pressure 169/108 H 05/01/25 14:51 Pulse Oximetry 94 L 05/01/25 14:51 MDM - Chest Pain MDM Narrative Medical decision making narrative: The patient presentation could be secondary to chronic otitis media or also chronic bronchitis Right now the patient has been having symptoms at least for 2 months that he will be treated with the doxycycline specially with his history of smoking Patient was instructed about the importance of following up with his primary care for further evaluation and referral The patient CBC and chemistry showed no acute pathology with a troponin was negative The patient EKG was showing sinus rhythm with a heart rate of [address] elevation or depression And also the patient had a chest x-ray showing no acute pathology The patient to follow-up with the primary care within 2 to 3 days and to come back to the ER in case of any worsening of the current symptoms or any new symptoms or concerns Lab Data Labs: Lab Results 05/01/25 Range/Units 15:22 WBC 8.9 (4.0-11.0) 10^3/uL RBC 4.67 L (4.70-6.10) 10^6/uL Hgb 14.1 (14.0-18.0) g/dL Hct 43.6 (42.0-54.0) % MCV 93.4 (80.0-94.0) fL MCH 30.2 (25.9-34.0) pg MCHC 32.3 (29.9-35.2) g/dL RDW 13.4 (11.0-15.0) % Plt Count 254 (150-450) 10^3/uL MPV 10.1 (9.5-13.5) fL Neut % (Auto) 70.2 (43.0-75.0) % Lymph % (Auto) 15.5 L (20.5-60.0) % [place] % (Auto) 11.2 (1.7-12.0) % Eos % (Auto) 1.2 (0.9-7.0) % Baso % (Auto) 0.9 (0.2-2.0) % Neut # (Auto) 6.2 (1.4-6.5) 10^3/uL Lymph # (Auto) 1.4 (1.2-3.8) 10^3/uL [facility] # (Auto) 1.0 H (0.3-0.8) 10^3/uL Eos # (Auto) 0.1 (0.0-0.7) 10^3/uL Baso # (Auto) 0.1 (0.0-0.1) 10^3/uL Abs Immat Gran (auto) 0.09 H (0.00-0.03) 10^3/uL Imm/Tot Granulo (auto) 1.0 H (0.0-0.5) % PT 10.1 (9.0-11.6) sec INR 0.96 Sodium 140 (136-145) mmol/L Potassium 4.6 (3.5-5.1) mmol/L Chloride 107 (98-107) mmol/L Carbon Dioxide 27.4 (21.0-32.0) mmol/L Anion Gap 10.2 BUN 15.0 (7.0-18.0) mg/dL Creatinine 0.76 (0.70-1.30) mg/dL Est GFR ( Amer) >60 (>=60 mL/min/1.73m^2) Est GFR (Non-Af Amer) >60 (>=60 mL/min/1.73m^2) BUN/Creatinine Ratio 19.7 Glucose 104 (74-106) mg/dL Lactate 1.0 (0.4-2.0) mmol/L Calcium 8.8 (8.5-10.1) mg/dL Total Bilirubin 0.1 L (0.2-1.0) mg/dL AST 17 (15-37) U/L ALT 23 (16-63) U/L Alkaline Phosphatase 99 (46-116) U/L Troponin I High Sens 7.4 (4.0-76.1) pg/mL Total Protein 7.0 (6.4-8.2) g/dL Albumin 3.5 (3.4-5.0) g/dL Globulin 3.5 g/dL Albumin/Globulin Ratio 1.0 Discharge Plan Discharge Chief Complaint: Neck Pain/Injury Clinical Impression: Chronic bronchitis, Left middle ear infection, Neck pain Patient Disposition: Home, Self-Care Time of Disposition Decision: 16:55 Condition: Good Prescriptions / Home Meds: New doxycycline hyclate 100 mg tablet 100 mg PO BID 7 Days Qty: 14 0RF No Action prednisone 50 mg tablet 50 mg PO DAILY 5 Days Qty: 5 0RF albuterol sulfate 90 mcg/actuation aerosol powdr breath activated 2 inh inhalation Q6H PRN (Reason: shortness of breath or wheezing) Qty: 1 0RF budesonide-formoterol [Symbicort] 80-4.5 mcg/actuation HFA aerosol inhaler 1 inh inhalation BID albuterol sulfate 90 mcg/actuation HFA aerosol inhaler 1 puff INHALATION Q6H PRN (Reason: shortness of breath or wheezing) benzonatate 100 mg capsule 200 mg PO TID PRN (Reason: cough) Qty: 20 0RF sildenafil 100 mg tablet 100 mg PO Q24H PRN (Reason: sexual activity) prednisone 20 mg tablet See Rx Instructions .ROUTE .COMPLEX Qty: 12 0RF Rx Instructions: 3 tabs daily for 2 days, then 2 tabs daily for 2 days, then 1 tab daily for 2 days cephalexin 500 mg capsule 500 mg PO Q8H 10 Days Qty: 30 0RF hydroxyzine HCl 25 mg tablet 25 mg PO Q6H PRN (Reason: itching) Qty: 20 0RF Print Language: Telugu Instructions: Cervical Strain (DC), Ear Infection (ED), Chronic Bronchitis (DC) Referrals: Physician,Non-Staff, MD [Primary Care Provider] - 1 week
== END 2025-05-01 17:03 | disposition home or self-care (01) ==
PROVIDERS: Emergency Provider Emergency Medicine
DX: J42 Unspecified chronic bronchitis (principal); H66.92 Otitis media, unspecified, left ear; M54.2 Cervicalgia; R05.9 Cough, unspecified
CPT/HCPCS: 36415; 71045; 80053; 83605; 84484; 85025; 85610; 93005; 99284